=== PATIENT | female | born 1955 | race Caucasian/White ===

== ENCOUNTER 2018-06-28 11:08 | Outpatient (CLI) | payer OTHER | END 2018-06-28 12:05 | disposition still patient (30) | LOC: C.VASC 11:08 | DX: I73.9 Peripheral vascular disease, unspecified (principal) ==

== ENCOUNTER 2018-06-28 12:06 | Inpatient (IN) | payer OTHER ==
[2018-06-28 12:39] VITALS: BMI 32.3
--- NOTE | 2018-06-28 12:54 | C.PDOC ---
History Of Present Illness 62 y/o female presents to the ER complaining of pain in the chest and upper abdomen which began in the morning today. Daughter states that she is concerned because patient has history of open-heart surgery. Patient denies having fever, chills, shortness of breath, nausea, vomiting, and leg swelling. Time Seen by Provider: 06/28/18 12:28 Chief Complaint (Nursing): Chest Pain History Per: Patient History/Exam Limitations: no limitations Onset/Duration Of Symptoms: Days Current Symptoms Are (Timing): Still Present Severity: Moderate Quality: Aching Past Medical History Reviewed: Historical Data, Nursing Documentation, Vital Signs Vital Signs: Last Vital Signs Temp 97.1 F L 06/28/18 12:25 Pulse 60 06/28/18 12:25 Resp 20 06/28/18 12:25 BP 138/92 H 06/28/18 12:25 Pulse Ox 98 06/28/18 12:25 - Medical History PMH: Arthritis, Asthma, CAD (s/p CABG 6 months), Cardia Arrhythmia, Depression, Diabetes, HTN, Hypercholesterolemia, Peripheral Edema (RT PEDAL EDEMA) Comment Only: Chronic Kidney Disease (ACUTE RENAL FAILURE AFTER CABG) Family History: States: No Known Family Hx - Social History Hx Tobacco Use: No Hx Alcohol Use: No Hx Substance Use: No - Immunization History Hx Influenza Vaccination: Yes Review Of Systems Except As Marked, All Systems Reviewed And Found Negative. Constitutional: Negative for: Fever, Chills Cardiovascular: Positive for: Chest Pain Respiratory: Negative for: Shortness of Breath Gastrointestinal: Positive for: Abdominal Pain. Negative for: Nausea, Vomiting Physical Exam - Physical Exam Appears: Non-toxic, No Acute Distress Skin: Normal Color, Warm, Dry Head: Atraumatic, Normacephalic Eye(s): bilateral: Normal Inspection Nose: Normal Oral Mucosa: Moist Neck: Supple Chest: Symmetrical Cardiovascular: Rhythm Regular Respiratory: Normal Breath Sounds, No Rales, No Rhonchi, No Wheezing Gastrointestinal/Abdominal: Soft, Tenderness (epigastric and RUQ tenderness), No Guarding, No Rebound Extremity: Normal ROM Neurological/Psych: Oriented x3, Normal Speech Disoriented To: Person ED Course And Treatment - Laboratory Results Result Diagrams: 06/28/18 12:50 06/28/18 12:50 Lab Interpretation: No Acute Changes ECG: Interpreted By Me ECG Rhythm: Sinus Bradycardia, ST/T Changes ECG Interpretation: No Changes From Prior Rate From EC O2 Sat by Pulse Oximetry: 98 (RA) Pulse Ox Interpretation: Normal - Radiology CXR: Interpreted by Me CXR Interpretation: Yes: No Acute Disease - CT Scan/US No standard instances Other Rad Studies (CT/US): Read By Radiologist, Radiology Report Reviewed CT/US Interpretation: FINDINGS: LIVER: Measures 14.8 cm in sagittal dimension. Echogenic liver may be seen in setting of hepatic parenchymal disease or fatty infiltration. No focal hepatic mass identified. The main portal vein appears patent with normal directional flow. No intrahepatic bile duct dilatation. GALLBLADDER: Cholecystectomy. COMMON BILE DUCT: Measures 3 mm. PANCREAS: Not well visualized. RIGHT KIDNEY: Measures 11.7 x 3.4 x 5.8 cm. No obstructing calculus or hydronephrosis identified. LEFT KIDNEY: Measures 11.0 x 4.3 x 4.7 cm. No obstructing calculus or hydronephrosis identified. SPLEEN: Measures approximately 7.9 cm. AORTA: Limited views appear unremarkable. IVC: Limited views appear unremarkable. OTHER FINDINGS: None. IMPRESSION: Ch olecystectomy. Echogenic liver may be seen in setting of hepatic parenchymal disease or fatty infiltration. Progress Note: Patient brought in by family with complaints of midsternal CP. On re-evaluation. lungs cleat, in no distress Reassessment Condition: Improved - Physician Consult Information Physician Contacted: Nitesh Kevin Outcome Of Conversation: admit Medical Decision Making Medical Decision Making: Plan: --Labs --UA --CXR --US-Abd. Disposition Discussed With .: Nitesh Kevin Doctor Will See Patient In The: Hospital - Disposition Disposition: HOSPITALIZED Disposition Time: 16:00 Condition: STABLE - POA Present On Arrival: None - Clinical Impression Clinical Impression: Chest pain, Abnormal EKG - PA / DENTAL HYGIENE INSTRUCTOR / Resident Statement MD/DO has reviewed & agrees with the documentation as recorded. - Scribe Statement The provider has reviewed the documentation as recorded by the Jose Simon Provider Attestation All medical record entries made by the Kelyibe were at my direction and personally dictated by me. I have reviewed the chart and agree that the record accurately reflects my personal performance of the history, physical exam, medical decision making, and the department course for this patient. I have also personally directed, reviewed, and agree with the discharge instructions and disposition. Decision To Admit - Pt Status Changed To: Hospital Disposition Of: Inpatient - Admit Certification Admit to Inpatient:: After my assessment, the patient will require hospitalization for at least two midnights. This is because of the severity of symptoms shown, intensity of services needed, and/or the medical risk in this patient being treated as an outpatient. - InPatient: Physician Admission Certification: I certify that this patient requires 2 or mo re midnights of care for the following reason:: Chest pain - . Bed Request Type: Telemetry Admitting Physician: Nitesh Kevin Patient Diagnosis: Chest pain, Abnormal EKG
[2018-06-28 12:56] LABS: BASO % 0.5 % (0.0-2.0); EOS # 0.2 K/uL (0.0-0.7); EOS % 2.9 % (0.0-4.0); HEMOGLOBIN 10.4 g/dL (11.0-16.0); LYMPH # 2.1 K/uL (1.0-4.3); LYMPH % 33.3 % (20.0-40.0); MEAN CORPUSCULAR HEMOGLOBIN 29.9 pg (27.0-31.0); MEAN CORPUSCULAR HGB CONC 33.6 g/dL (33.0-37.0); MEAN PLATELET VOLUME 10.2 fL (7.2-11.7); MONO # 0.5 K/uL (0.0-0.8); MONO % 8.3 % (0.0-10.0); NEUT # 3.4 K/uL (1.8-7.0); NRBC % 0.1 % (0.0-2.0); RBC 3.5 Mil/uL (3.80-5.20); RED CELL DISTRIBUTION WIDTH 13.4 % (11.5-14.5); WHITE BLOOD COUNT 6.3 K/uL (4.8-10.8)
[2018-06-28 13:07] LABS: ALB/GLOB RATIO 1.3 (1.0-2.1); ALBUMIN 4.1 g/dL (3.5-5.0); ALT/SGPT 9 U/L (9-52); AST/SGOT 30 U/L (14-36); BLOOD UREA NITROGEN 42 mg/dL (7-17); CALCIUM 9.3 mg/dl (8.6-10.4); GFR NON-AFRICAN AMERICAN 27; LIPASE 232 U/L (23-300)
[2018-06-28 13:19] LABS: CK-MB 1.12 ng/mL (0.0-3.38)
--- NOTE | 2018-06-28 13:21 | RAD ---
HISTORY: SOB COMPARISON: None available. TECHNIQUE: Chest, one view. FINDINGS: Examination limited by habitus. LUNGS: No focal consolidation. Please note that chest x-ray has limited sensitivity for the detection of pulmonary masses. PLEURA: No significant pleural effusion identified. No definite pneumothorax . CARDIOVASCULAR: Median sternotomy wires. Cardiomegaly. Atherosclerotic calcifications of the aortic knob. OSSEOUS STRUCTURES: Degenerative changes. VISUALIZED UPPER ABDOMEN: Unremarkable. OTHER FINDINGS: None. IMPRESSION: No focal consolidation. Median sternotomy wires. Cardiomegaly.
--- NOTE | 2018-06-28 13:39 | US ---
HISTORY: R/O GB COMPARISON: None available. TECHNIQUE: Sonographic evaluation of the abdomen. FINDINGS: LIVER: Measures 14.8 cm in sagittal dimension. Echogenic liver may be seen in setting of hepatic parenchymal disease or fatty infiltration. No focal hepatic mass identified. The main portal vein appears patent with normal directional flow. No intrahepatic bile duct dilatation. GALLBLADDER: Cholecystectomy. COMMON BILE DUCT: Measures 3 mm. PANCREAS: Not well visualized. RIGHT KIDNEY: Measures 11.7 x 3.4 x 5.8 cm. No obstructing calculus or hydronephrosis identified. LEFT KIDNEY: Measures 11.0 x 4.3 x 4.7 cm. No obstructing calculus or hydronephrosis identified. SPLEEN: Measures approximately 7.9 cm. AORTA: Limited views appear unremarkable. IVC: Limited views appear unremarkable. OTHER FINDINGS: None. IMPRESSION: Cholecystectomy. Echogenic liver may be seen in setting of hepatic parenchymal disease or fatty infiltration.
[2018-06-28 14:34] LABS: SQUAMOUS EPITHIAL 1 /hpf (0-5)
[2018-06-28 14:35] LABS: URINE BILIRUBIN NEGATIVE (NEGATIVE); URINE BLOOD NEGATIVE (NEGATIVE); URINE CLARITY Clear (Clear); URINE COLOR YELLOW (YELLOW); URINE GLUCOSE (UA) NEGATIVE (Normal); URINE LEUKOCYTE ESTERASE NEGATIVE Leu/uL (Negative); URINE PROTEIN 2+ mg/dL (NEGATIVE); URINE UROBILINOGEN 0.2 mg/dL (0.2-1.0)
--- NOTE | 2018-06-28 17:11 | CP.PCM.PN ---
Subjective - Date & Time of Evaluation Date of Evaluation: 06/28/18 Time of Evaluation: 17:09 - Subjective Subjective: Medicine Progress Note - Dr Kevin's service Patient is a 62 year old female with past medical history of Renal insufficiency, Diabetes mellitus, Hypertension who presented to the emergency department for chest pain. Patient is a poor historian. Per the daughter, the patient was ambulating today when she developed left sided chest pain. Patient states that she came to the hospital to have an outpatient US done of the lower extremities. She took her blood pressure medications at this time and went to the emergency department. Patient has a history of 3 open heart surgeries in the past. The last CABG was in 2013. Per the daughter, the patient has not been ambulating much in the last year. She had a dialysis catheter placed in 2013 that was only used for a month before being removed. Patient has been complaining of pain over this site since then. Currently she offers no complaints at this time. [facility]acy[facility] Allergies: NKDA Medications: losartan 50, norvasc 10, coreg 6.25 bid, asa 81, plavix 75, lipitor 40, iron 324 TID Medical History: CAD s/p CABG, hypercholesterolemia, Anemia, Hypertension Surgical History: CABG in 2013 Social History: Denies alcohol, tobacco, drug use Family History: Mother - DM Objective - Vital Signs/Intake and Output Vital Signs (last 24 hours): Temp Pulse Resp BP Pulse Ox 97.5 F L 61 14 129/51 L 99 06/28/18 15:35 06/28/18 16:30 06/28/18 16:30 06/28/18 16:30 06/28/18 16:30 - Labs Labs: 06/28/18 12:50 06/28/18 12:50 - Constitutional Appears: Non-toxic, No Acute Distress, Chronically Ill - Head Exam Head Exam: ATRAUMATIC, NORMAL INSPECTION, NORMOCEPHALIC - Eye Exam Eye Exam: EOMI - ENT Exam ENT Exam: Mucous Membranes Moist - Respiratory Exam Respiratory Exam: Clear to Ausculation Bilateral, NORMAL BREATHING PATTERN. absent: Rales, Rhonchi, Wheezes - Cardiovascular Exam Cardiovascular Exam: REGULAR RHYTHM, +S1, +S2, Murmur - GI/Abdominal Exam GI & Abdominal Exam: Guarding, Soft, Tenderness (epigastric tenderness). absent: Rigid - Extremities Exam Extremities Exam: Normal Inspection. absent: Calf Tenderness - Neurological Exam Neurological Exam: Alert, Awake, Oriented x3 - Psychiatric Exam Psychiatric exam: Normal Affect, Normal Mood - Skin Skin Exam: Dry, Normal Color, Warm Assessment and Plan - Assessment and Plan (Free Text) Assessment: Chest pain r/o ACS, History of CAD s/p CABG -Admit to telemetry -Initial troponin is negative, trend q6H x 2 -Started on Aspirin 81mg PO daily, plavix 75mg PO daily, Crestor 10mg PO HS -Last echocardiogram 03/2018 showed moderate concentric LVH, EF 55-60%, possible moderate , trace TR, left ventricle abnormal size -Cardiology on consult, Dr Peterson, help appreciated Abdominal Pain -Abdominal US: Cholecystectomy, echogenic liver may be seen in the setting of hepatic parenchymal disease or fatty infiltration Hypertension -Norvasc 10mg PO daily -Coreg 6.125mg PO BID Renal Insufficency -BUN/Cr on admission 42/1.9 -Patient states that she was on dialysis for just a month in the past -Nephrology on consult, Dr Guerra, help appreciated Diabetes Mellitus -F/U hemoglobin A1C -Started on insulin sliding scale and accuchecks ACHS Anemia likely secondary to chronic disease -F/U iron studies GI/DVT ppx: -Protonix 40mg IVP daily -Heparin 5000 SC Q12H Plan discussed with Dr Dorita Mccormick DO PGY-2
[2018-06-28 18:24] LABS: CK-MB 1.48 ng/mL (0.0-3.38)
[2018-06-28] MEDS ORDERED: Aluminum Hydroxide/Magnesium Hydroxide Susp (30 mL) PO PRN (20:30)
[2018-06-28] MEDS: (Novolog) Insulin Aspart, Recombinant 100 u/ml 10 ml vial SC SCH (21:30)
[2018-06-29 01:44] LABS: CK-MB 1.07 ng/mL (0.0-3.38)
--- NOTE | 2018-06-29 07:18 | CP.PCM.PN ---
Subjective - Date & Time of Evaluation Date of Evaluation: 06/29/18 Time of Evaluation: 07:18 - Subjective Subjective: Medicine Progress Note - Dr Kevin's service Patient seen and examined at bedside. Per nursing no acute events overnight. Patient is tolerating diet. States that she had a headache that improved with Tylenol. Offers no complaints at this time. Objective - Vital Signs/Intake and Output Vital Signs (last 24 hours): Temp Pulse Resp BP Pulse Ox 98.0 F 67 20 152/62 H 98 06/29/18 00:10 06/29/18 00:10 06/29/18 00:10 06/29/18 00:10 06/29/18 00:10 - Medications Medications: Current Medications Al Hydrox/Mg Hydrox/Simethicone (Maalox 30 Ml) 30 ml PO Q6 PRN PRN Reason: Indigestion / Heartburn Amlodipine Besylate (Norvasc) 10 mg PO DAILY [facility] Aspirin (Ecotrin) 81 mg PO DAILY [facility] Carvedilol (Coreg) 6.25 mg PO BID [facility] Last Admin: 06/28/18 18:38 Dose: 6.25 mg Clopidogrel Bisulfate (Plavix) 75 mg PO DAILY [facility] Docusate Sodium (Colace) 100 mg PO TID [facility] Famotidine (Pepcid) 20 mg IVP DAILY [facility] Ferrous Sulfate (Feosol) 325 mg PO TID [facility] Heparin Sodium (Porcine) (Heparin) 5,000 units SC Q12 [facility] Last Admin: 06/28/18 21:27 Dose: 5,000 units Insulin Aspart (Novolog) 0 unit SC ACHS [facility]; Protocol Last Admin: 06/28/18 21:30 Dose: Not Given Rosuvastatin Calcium (Crestor) 20 mg PO HS [facility] Last Admin: 06/28/18 21:35 Dose: 20 mg - Labs Labs: 06/28/18 12:50 06/28/18 12:50 Assessment and Plan - Assessment and Plan (Free Text) Assessment: Chest pain r/o ACS, History of CAD s/p CABG -Admit to telemetry -Troponins negative x 3 -Continue Aspirin 81mg PO daily, plavix 75mg PO daily -Last echocardiogram 03/2018 showed moderate concentric LVH, EF 55-60%, possible moderate , trace TR, left ventricle abnormal size -Patient for possible stress test -Cardiology on consult, Dr Peterson, help appreciated Abdominal Pain -Abdominal US: Cholecystectomy, echogenic liver may be seen in the setting of hepatic parenchymal disease or fatty infiltration -Pepcid 20mg IVP daily Renal Insufficiency -BUN/Cr on admission 42/.9 -Patient states that she was on dialysis for just a month in the past -Nephrology on consult, Dr Guerra, help appreciated Hypertension -Cozaar 25mg PO daily -Norvasc 10mg PO daily Diabetes Mellitus -Hemoglobin A1C 8.3 -Started on insulin sliding scale and accuchecks ACHS History of hyperlipidemia -Triglycerides are elevated -Crestor 10mg PO HS Anemia likely secondary to chronic disease -Continue Ferrous sulfate GI/DVT ppx: -Pepcid 20mg IVP daily -Heparin 5000 SC Q12H Plan discussed with Dr Dorita Mccormick DO PGY-2
[2018-06-29 08:33] LABS: BASO % 0.9 % (0.0-2.0); EOS # 0.2 K/uL (0.0-0.7); EOS % 3.2 % (0.0-4.0); LYMPH # 2.1 K/uL (1.0-4.3); LYMPH % 39.7 % (20.0-40.0); MEAN CELL VOLUME 88.6 fL (81.0-99.0); MEAN CORPUSCULAR HEMOGLOBIN 29.8 pg (27.0-31.0); MEAN CORPUSCULAR HGB CONC 33.6 g/dL (33.0-37.0); MEAN PLATELET VOLUME 9.5 fL (7.2-11.7); MONO # 0.5 K/uL (0.0-0.8); NEUT # 2.5 K/uL (1.8-7.0); NEUT % 47.2 % (50.0-75.0); RBC 3.35 Mil/uL (3.80-5.20); RED CELL DISTRIBUTION WIDTH 13.6 % (11.5-14.5); WHITE BLOOD COUNT 5.3 K/uL (4.8-10.8)
[2018-06-29 08:46] LABS: ALB/GLOB RATIO 1.3 (1.0-2.1); ALBUMIN 3.9 g/dL (3.5-5.0); ALT/SGPT < 6 U/L (9-52); AST/SGOT 17 U/L (14-36); BLOOD UREA NITROGEN 38 mg/dL (7-17); CALCIUM 9.1 mg/dl (8.6-10.4); GFR NON-AFRICAN AMERICAN 22; HDL CHOLESTEROL 51 mg/dL (30-70)
[2018-06-29] MEDS: (Novolog) Insulin Aspart, Recombinant 100 u/ml 10 ml vial SC SCH ×4 (08:48→21:07)
[2018-06-29 08:56] LABS: LDL CHOLESTEROL 36 mg/dL (0-129)
[2018-06-29 08:58] LABS: IRON 49 ug/dL (37-170)
[2018-06-29 09:07] LABS: % IRON SATURATION 17 (20-55); TOTAL IRON BINDING CAPACITY 286 ug/dL (250-450); TRANSFERRIN 198.83 mg/dL (206-381)
[2018-06-29 09:15] LABS: FREE T4 0.98 ng/dL (0.78-2.19)
[2018-06-29 09:18] LABS: FERRITIN 60.5 ng/mL
[2018-06-29 09:49] LABS: FOLATE 11.9 ng/mL
--- NOTE | 2018-06-29 10:19 | CP.PCM.CON ---
<Deepika Alegria - Last Filed: 06/29/18 14:12> History of Present Illness - History of Present Illness History of Present Illness: Deepika Alegria, PGY-1, Cardiology Consult Note for Dr. Elias 62 year old female bengali speaking and poor historian with past medical history of hypertension, hyperlipidemia, diabetes mellitus type II, history of prior thrombus presents with fatigue. Patient reports fatigue with 2-3 steps. Patient has shortness of breath and feels like "heart will stop". Patient denies chest pain, nausea, heart palpitations. Patient reports fatigue started October 08 after CABG last year. However, patient's last documented CABG was in 2013, which was confirmed by daughter. Patient was brought to the hospital by daughter for these symptoms as they were walking to the hospital for an X ray. 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: unsure due to patient being poor historian Review of Systems - Review of Systems Review of Systems: except as stated in HPI Past Patient History - Infectious Disease Hx of Infectious Diseases: None - Tetanus Immunizations Tetanus Immunization: Unknown - Past Social History Smoking Status: Never Smoked - CARDIAC Hx Cardia Arrhythmia: Yes Hx Hypercholesterolemia: Yes Hx Hypertension: Yes Hx Peripheral Edema: Yes (RT PEDAL EDEMA) - PULMONARY Hx Asthma: Yes - NEUROLOGICAL Hx Alzheimer's Disease: No Hx Dementia: No Hx Migraine: No Hx Parkinson's Disease: No Hx Seizures: No Hx Transient Ischemic Attacks (TIA): No - HEENT Hx HEENT Problems: Yes (USING GLASSES) Hx Blind: Yes (legally blind) - RENAL Hx Chronic Kidney Disease: (ACUTE RENAL FAILURE AFTER CABG) - ENDOCRINE/METABOLIC Hx Hyperthyroidism: No Hx Hypothyroidism: No - HEMATOLOGICAL/ONCOLOGICAL Hx Anemia: No Hx Human Immunodeficiency Virus (HIV): No Hx Sickle Cell Disease: No - INTEGUMENTARY Hx Dermatological Problems: No Hx Basil Cell: No Hx Eczema: No Hx Melanoma: No Hx Psoriasis: No Hx Squamous Cell: No - MUSCULOSKELETAL/RHEUMATOLOGICAL Hx Arthritis: Yes - GASTROINTESTINAL Hx Crohn's Disease: No Hx Diverticulitis: No Hx Gall Bladder Disease: No Hx Pancreatitis: No - GENITOURINARY/GYNECOLOGICAL Hx Sexually Transmitted Disorders: No - PSYCHIATRIC Hx Depression: Yes Hx Substance Use: No - SURGICAL HISTORY Hx Appendectomy: No Hx Cholecystectomy: No Hx Coronary Stent: No - ANESTHESIA Hx Anesthesia: Yes Hx Anesthesia Reactions: No Hx Malignant Hyperthermia: No Meds Allergies/Adverse Reactions: Allergies Allergy/AdvReac Type Severity Reaction Status Date / Time No Known Allergies Allergy Verified 03/31/18 00:22 - Medications Medications: Current Medications Al Hydrox/Mg Hydrox/Simethicone (Maalox 30 Ml) 30 ml PO Q6 PRN PRN Reason: Indigestion / Heartburn Amlodipine Besylate (Norvasc) 10 mg PO DAILY [facility] Aspirin (Ecotrin) 81 mg PO DAILY [facility] Carvedilol (Coreg) 6.25 mg PO BID [facility] Last Admin: 06/28/18 18:38 Dose: 6.25 mg Clopidogrel Bisulfate (Plavix) 75 mg PO DAILY [facility] Docusate Sodium (Colace) 100 mg PO TID [facility] Famotidine (Pepcid) 20 mg IVP DAILY [facility] Ferrous Sulfate (Feosol) 325 mg PO TID [facility] Heparin Sodium (Porcine) (Heparin) 5,000 units SC Q12 [facility] Last Admin: 06/28/18 21:27 Dose: 5,000 units Insulin Aspart (Novolog) 0 unit SC ACHS [facility]; Protocol Last Admin: 06/29/18 08:48 Dose: Not Given Rosuvastatin Calcium (Crestor) 20 mg PO [facility] Last Admin: 06/28/18 21:35 Dose: 20 mg Physical Exam - Constitutional Appears: Well, Non-toxic, No Acute Distress - Head Exam Head Exam: ATRAUMATIC, NORMAL INSPECTION, NORMOCEPHALIC - Eye Exam Eye Exam: EOMI, PERRL - ENT Exam ENT Exam: Mucous Membranes Moist - Respiratory Exam Respiratory Exam: Clear to Auscultation Bilateral, NORMAL BREATHING PATTERN - Cardiovascular Exam Cardiovascular Exam: REGULAR RHYTHM, RRR, +S1, +S2 - GI/Abdominal Exam GI & Abdominal Exam: Normal Bowel Sounds, Soft. absent: Tenderness - Extremities Exam Extremities exam: Positive for: full ROM, normal inspection. Negative for: pedal edema - Neurological Exam Neurological exam: Alert, CN II-XII Intact, Oriented x3 - Skin Skin Exam: Dry, Intact Results - Vital Signs Recent Vital Signs: Last Vital Signs Temp 97.7 F 06/29/18 07:00 Pulse 65 06/29/18 07:30 Resp 20 06/29/18 07:00 BP 149/60 06/29/18 07:00 Pulse Ox 98 06/29/18 07:00 - Labs Result Diagrams: 06/29/18 08:23 06/29/18 08:23 Labs: Laboratory Results - last 24 hr 06/28/18 06/28/18 06/28/18 12:50 12:50 14:07 WBC 6.3 RBC 3.50 L Hgb 10.4 L Hct 31.1 L MCV 89.0 MCH 29.9 MCHC 33.6 RDW 13.4 Plt Count 263 MPV 10.2 Neut % (Auto) 55.0 Lymph % (Auto) 33.3 [place] % (Auto) 8.3 Eos % (Auto) 2.9 Baso % (Auto) 0.5 Neut # (Auto) 3.4 Lymph # (Auto) 2.1 [place] # (Auto) 0.5 Eos # (Auto) 0.2 Baso # (Auto) 0.0 Retic Count Sodium 134 Potassium 4.8 Chloride 103 Carbon Dioxide 22 Anion Gap 13 BUN 42 H Creatinine 1.9 H Est GFR ( Amer) 32 Est GFR (Non-Af Amer) 27 Random Glucose 155 H Hemoglobin A1c Calcium 9.3 Phosphorus Magnesium Iron TIBC % Saturation Transferrin Ferritin Total Bilirubin 0.5 AST 30 ALT 9 Alkaline Phosphatase 169 H Total Creatine Kinase CK-MB (Mass) 1.12 Troponin I < 0.0120 Total Protein 7.3 Albumin 4.1 Globulin 3.2 Albumin/Globulin Ratio 1.3 Triglycerides Cholesterol LDL Cholesterol Direct HDL Cholesterol Lipase 232 Vitamin B12 25-OH Vitamin D Total Folate Free T4 TSH 3rd Generation Urine Color Yellow Urine Clarity Clear Urine pH 6.0 Ur Specific [place] 1.020 Urine Protein 2+ H Urine Glucose (UA) Negative Urine Ketones Negative Urine Blood Negative Urine Nitrate Negative Urine Bilirubin Negative Urine Urobilinogen 0.2 Ur Leukocyte Esterase Negative Urine WBC (Auto) 4 Urine RBC (Auto) 1 Ur Squamous Epith Cells 1 Hyaline Casts 3-5 H 06/28/18 06/29/18 06/29/18 17:57 01:12 08:23 WBC 5.3 RBC 3.35 L Hgb 10.0 L Hct 29.7 L MCV 88.6 MCH 29.8 MCHC 33.6 RDW 13.6 Plt Count 258 MPV 9.5 Neut % (Auto) 47.2 L Lymph % (Auto) 39.7 [place] % (Auto) 9.0 Eos % (Auto) 3.2 Baso % (Auto) 0.9 Neut # (Auto) 2.5 Lymph # (Auto) 2.1 [place] # (Auto) 0.5 Eos # (Auto) 0.2 Baso # (Auto) 0.0 Retic Count 1.2 Sodium Potassium Chloride Carbon Dioxide Anion Gap BUN Creatinine Est GFR ( Amer) Est GFR (Non-Af Amer) Random Glucose Hemoglobin A1c Calcium Phosphorus Magnesium Iron TIBC % Saturation Transferrin Ferritin Total Bilirubin AST ALT Alkaline Phosphatase Total Creatine Kinase 59 52 CK-MB (Mass) 1.48 1.07 Troponin I < 0.0120 < 0.0120 Total Protein Albumin Globulin Albumin/Globulin Ratio Triglycerides Cholesterol LDL Cholesterol Direct HDL Cholesterol Lipase Vitamin B12 25-OH Vitamin D Total Folate Free T4 TSH 3rd Generation Urine Color Urine Clarity Urine pH Ur Specific [place] Urine Protein Urine Glucose (UA) Urine Ketones Urine Blood Urine Nitrate Urine Bilirubin Urine Urobilinogen Ur Leukocyte Esterase Urine WBC (Auto) Urine RBC (Auto) Ur Squamous Epith Cells Hyaline Casts 06/29/18 06/29/18 06/29/18 08:23 08:23 08:23 WBC RBC Hgb Hct MCV MCH MCHC RDW Plt Count MPV Neut % (Auto) Lymph % (Auto) [place] % (Auto) Eos % (Auto) Baso % (Auto) Neut # (Auto) Lymph # (Auto) [place] # (Auto) Eos # (Auto) Baso # (Auto) Retic Count Sodium 135 Potassium 3.9 Chloride 104 Carbon Dioxide 23 Anion Gap 12 BUN 38 H Creatinine 2.2 H Est GFR ( Amer) 27 Est GFR (Non-Af Amer) 22 Random Glucose 109 H D Hemoglobin A1c 8.3 H Calcium 9.1 Phosphorus 5.1 H Magnesium 2.1 Iron TIBC % Saturation Transferrin 198.83 L Ferritin 60.5 Total Bilirubin 0.3 AST 17 ALT < 6 L D Alkaline Phosphatase 172 H Total Creatine Kinase CK-MB (Mass) Troponin I Total Protein 7.0 Albumin 3.9 Globulin 3.1 Albumin/Globulin Ratio 1.3 Triglycerides 181 H Cholesterol 135 LDL Cholesterol Direct 36 HDL Cholesterol 51 Lipase Vitamin B12 656 25-OH Vitamin D Total Folate 11.9 Free T4 0.98 TSH 3rd Generation 4.47 Urine Color Urine Clarity Urine pH Ur Specific [place] Urine Protein Urine Glucose (UA) Urine Ketones Urine Blood Urine Nitrate Urine Bilirubin Urine Urobilinogen Ur Leukocyte Esterase Urine WBC (Auto) Urine RBC (Auto) Ur Squamous Epith Cells Hyaline Casts 06/29/18 06/29/18 08:23 08:23 WBC RBC Hgb Hct MCV MCH MCHC RDW Plt Count MPV Neut % (Auto) Lymph % (Auto) [place] % (Auto) Eos % (Auto) Baso % (Auto) Neut # (Auto) Lymph # (Auto) [place] # (Auto) Eos # (Auto) Baso # (Auto) Retic Count Sodium Potassium Chloride Carbon Dioxide Anion Gap BUN Creatinine Est GFR ( Amer) Est GFR (Non-Af Amer) Random Glucose Hemoglobin A1c Calcium Phosphorus Magnesium Iron 49 TIBC 286 % Saturation 17 L Transferrin Ferritin Total Bilirubin AST ALT Alkaline Phosphatase Total Creatine Kinase CK-MB (Mass) Troponin I Total Protein Albumin Globulin Albumin/Globulin Ratio Triglycerides Cholesterol LDL Cholesterol Direct HDL Cholesterol Lipase Vitamin B12 25-OH Vitamin D Total 38.3 Folate Free T4 TSH 3rd Generation Urine Color Urine Clarity Urine pH Ur Specific [place] Urine Protein Urine Glucose (UA) Urine Ketones Urine Blood Urine Nitrate Urine Bilirubin Urine Urobilinogen Ur Leukocyte Esterase Urine WBC (Auto) Urine RBC (Auto) Ur Squamous Epith Cells Hyaline Casts Assessment & Plan (1) Fatigue Assessment and Plan: EKG: NSR with T wave depressions in I and aVL. ST elevation in III and aVF. UNCHANGED FROM PRIOR ADMISSION Tropx3: unremarkable Will likely evaluate with stress test for possible etiology of fatigue Continue with aspirin, rosuvastatin, coreg, losartan. Status: Acute (2) Diabetes mellitus Assessment and Plan: HgbA1c: 8.3 Continue with sliding scale insulin Status: Acute (3) HTN (hypertension) Assessment and Plan: SBP ranging from 130s to 150s Continue norvasc, coreg Status: Acute (4) Hyperlipidemia Assessment and Plan: T Continue with rosuvastatin. Status: Acute - Date & Time Date: 06/29/18 Time: 10:20 <Medardo Peterson - Last Filed: 07/05/18 22:42> Results - Vital Signs Recent Vital Signs: Last Vital Signs Temp 97.7 F 07/04/18 18:10 Pulse 68 07/04/18 18:10 Resp 20 07/04/18 18:10 BP 159/68 H 07/04/18 18:12 Pulse Ox 100 07/04/18 18:10 - Labs Result Diagrams: 07/04/18 07:51 07/04/18 07:51 Assessment & Plan (1) CAD (coronary artery disease) of artery bypass graft Status: Acute (2) Fatigue Status: Acute (3) Diabetes mellitus Status: Acute (4) Hyperlipidemia Status: Acute (5) Abnormal EKG Status: Acute (6) HTN (hypertension) Status: Acute Attending/Attestation - Attestation I have personally seen and examined this patient.: Yes I have fully participated in the care of the patient.: Yes I have reviewed all pertinent clinical information: Yes
--- NOTE | 2018-06-29 14:48 | CP.PCM.CON ---
History of Present Illness - History of Present Illness History of Present Illness: Nephrology Consultation Note: Assessment: Stable exertional SOB ? angina Diabetic chronic Kidney Disease (E11.22) Hypertensive Chronic Kidney Disease (I12.9) Chronic Kidney Disease (N18.3) Stage 4 likely due to DM/HTN Anemia (D64.9), CAD s/p CABG Plan No acute need for renal replacement therapy at this time. Hypertension control with meds as ordered. Maintain hemodynamics stable. Avoid hypotension. continue with current meds. pt on raas salomon as losartan 50 mg/d, continue same. Monitor Input/Output, daily weights and renal function with basic metabolic panel continue with statins continue with iron and MVI cardiology following Dose meds/antibiotics for reduced GFR. Avoid fleets enema/magnesium based laxatives. Avoid nephrotoxins/NSAIDs/ iodinated contrast (unless needed emergently) Glycemic control Further work up/management as per primary team Thanks for allowing me to participate in care of your patient. Will follow patient with you. Please call if any Qs. Dr Kaushal Guerra Office: [phone] Chief Complaint; exertional SOB Reason for consult: HTn and CKD HPI: Pt is a 62 F with hx of diabetes Mellitus ( years), hypertension (years) CKD 4 with baseline cr 1.9-2.1, CAD s/p CABG presented with complaints of exertional SOB and seen in renal consult for htn and ckd 4 management. 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 It is better controlled albeit with 5-6 meds. daughter prepare the meds for her but at times, there may be compliance issues from pt Denies OTC/herbal meds/NSAIDs No recent iodinated contrast exposure. No obvious episodes of low BP. ROS: Cardiovascular: denies chest pain . Pulmonary: No shortness of breath At present Gastrointestinal: denies abdominal pain No nausea. No vomiting. Genitourinary: No pain while urinating. Denies blood in urine. All other negative except as mentioned in HPI Physical Examination: General Appearance: Comfortable, in no acute respiratory distress, co-operative . Vitals reviewed and noted as below Head; Atraumatic, normocephalic ENT: no ulcers no thrush. Tongue is midline. Oropharynx: no rash or ulcers. EYES: Pupils are equal, round and reactive to light accommodation. Eye muscles and extraocular movement intact. Sclera is anicteric. Neck; supple no lymphadenopathy, no thyromegaly or bruit Lungs: Normal respiratory rate/effort. Breath sounds bilateral equal and clear. has CABG scar Heart: Normal rate. s1s2 normal. No rub or gallop. Extremities: no edema. No varicose veins Neurological: Patient is alert, awake and oriented. No focal deficit. Strength bilateral appropriate and equal Skin: Warm and dry. Normal turgor. No rash. Palpitation: Normal elasticity for age Abdomen: Abdomen is soft. Bowel sounds +. There is no abdominal tenderness, no guarding/rigidity no organomegaly Psych: lack insight and normal affect/mood MSK: no joint tenderness or swelling. Digits and nails normal, no deformity : kidney or bladder not palpable Labs/imaging reviewed. Past medical history, past surgical history, family history, social history, allergy reviewed and noted as below Family hx: no hx of CKD. Rest non-contributory renal imaging 2018: WNL, normal adrenals Past Patient History - Infectious Disease Hx of Infectious Diseases: None - Tetanus Immunizations Tetanus Immunization: Unknown - Past Social History Smoking Status: Never Smoked - CARDIAC Hx Cardia Arrhythmia: Yes Hx Hypercholesterolemia: Yes Hx Hypertension: Yes Hx Peripheral Edema: Yes (RT PEDAL EDEMA) - PULMONARY Hx Asthma: Yes - NEUROLOGICAL Hx Alzheimer's Disease: No Hx Dementia: No Hx Migraine: No Hx Parkinson's Disease: No Hx Seizures: No Hx Transient Ischemic Attacks (TIA): No - HEENT Hx HEENT Problems: Yes (USING GLASSES) Hx Blind: Yes (legally blind) - RENAL Hx Chronic Kidney Disease: (ACUTE RENAL FAILURE AFTER CABG) - ENDOCRINE/METABOLIC Hx Hyperthyroidism: No Hx Hypothyroidism: No - HEMATOLOGICAL/ONCOLOGICAL Hx Anemia: No Hx Human Immunodeficiency Virus (HIV): No Hx Sickle Cell Disease: No - INTEGUMENTARY Hx Dermatological Problems: No Hx Basil Cell: No Hx Eczema: No Hx Melanoma: No Hx Psoriasis: No Hx Squamous Cell: No - MUSCULOSKELETAL/RHEUMATOLOGICAL Hx Arthritis: Yes - GASTROINTESTINAL Hx Crohn's Disease: No Hx Diverticulitis: No Hx Gall Bladder Disease: No Hx Pancreatitis: No - GENITOURINARY/GYNECOLOGICAL Hx Sexually Transmitted Disorders: No - PSYCHIATRIC Hx Depression: Yes Hx Substance Use: No - SURGICAL HISTORY Hx Appendectomy: No Hx Cholecystectomy: No Hx Coronary Stent: No - ANESTHESIA Hx Anesthesia: Yes Hx Anesthesia Reactions: No Hx Malignant Hyperthermia: No Meds Allergies/Adverse Reactions: Allergies Allergy/AdvReac Type Severity Reaction Status Date / Time No Known Allergies Allergy Verified 03/31/18 00:22 - Medications Medications: Current Medications Al Hydrox/Mg Hydrox/Simethicone (Maalox 30 Ml) 30 ml PO Q6 PRN PRN Reason: Indigestion / Heartburn Amlodipine Besylate (Norvasc) 10 mg PO DAILY [facility] Last Admin: 06/29/18 10:17 Dose: 10 mg Aspirin (Ecotrin) 81 mg PO DAILY [facility] Last Admin: 06/29/18 10:17 Dose: 81 mg Carvedilol (Coreg) 6.25 mg PO BID [facility] Last Admin: 06/29/18 10:17 Dose: 6.25 mg Clopidogrel Bisulfate (Plavix) 75 mg PO DAILY [facility] Last Admin: 06/29/18 10:17 Dose: 75 mg Docusate Sodium (Colace) 100 mg PO TID [facility] Last Admin: 06/29/18 13:17 Dose: 100 mg Famotidine (Pepcid) 20 mg IVP DAILY [facility] Last Admin: 06/29/18 10:17 Dose: 20 mg Ferrous Sulfate (Feosol) 325 mg PO TID [facility] Last Admin: 06/29/18 13:16 Dose: 325 mg Heparin Sodium (Porcine) (Heparin) 5,000 units SC Q12 [facility] Last Admin: 06/29/18 10:17 Dose: 5,000 units Insulin Aspart (Novolog) 0 unit SC ACHS [facility]; Protocol Last Admin: 06/29/18 13:16 Dose: 3 units Losartan Potassium (Cozaar) 25 mg PO DAILY [facility] Rosuvastatin Calcium (Crestor) 20 mg PO HS [facility] Results - Vital Signs Recent Vital Signs: Last Vital Signs Temp 97.7 F 06/29/18 07:00 Pulse 65 06/29/18 07:30 Resp 20 06/29/18 07:00 BP 149/60 06/29/18 07:00 Pulse Ox 98 06/29/18 07:00 - Labs Result Diagrams: 06/29/18 08:23 06/29/18 08:23 Labs: Laboratory Results - last 24 hr 06/28/18 06/28/18 06/29/18 17:57 21:29 01:12 WBC RBC Hgb Hct MCV MCH MCHC RDW Plt Count MPV Neut % (Auto) Lymph % (Auto) [place] % (Auto) Eos % (Auto) Baso % (Auto) Neut # (Auto) Lymph # (Auto) [place] # (Auto) Eos # (Auto) Baso # (Auto) Retic Count Sodium Potassium Chloride Carbon Dioxide Anion Gap BUN Creatinine Est GFR ( Amer) Est GFR (Non-Af Amer) POC Glucose (mg/dL) 161 H Random Glucose Hemoglobin A1c Calcium Phosphorus Magnesium Iron TIBC % Saturation Transferrin Ferritin Total Bilirubin AST ALT Alkaline Phosphatase Total Creatine Kinase 59 52 CK-MB (Mass) 1.48 1.07 Troponin I < 0.0120 < 0.0120 Total Protein Albumin Globulin Albumin/Globulin Ratio Triglycerides Cholesterol LDL Cholesterol Direct HDL Cholesterol Vitamin B12 25-OH Vitamin D Total Folate Free T4 TSH 3rd Generation 06/29/18 06/29/18 06/29/18 06:36 08:23 08:23 WBC 5.3 RBC 3.35 L Hgb 10.0 L Hct 29.7 L MCV 88.6 MCH 29.8 MCHC 33.6 RDW 13.6 Plt Count 258 MPV 9.5 Neut % (Auto) 47.2 L Lymph % (Auto) 39.7 [place] % (Auto) 9.0 Eos % (Auto) 3.2 Baso % (Auto) 0.9 Neut # (Auto) 2.5 Lymph # (Auto) 2.1 [place] # (Auto) 0.5 Eos # (Auto) 0.2 Baso # (Auto) 0.0 Retic Count 1.2 Sodium 135 Potassium 3.9 Chloride 104 Carbon Dioxide 23 Anion Gap 12 BUN 38 H Creatinine 2.2 H Est GFR ( Amer) 27 Est GFR (Non-Af Amer) 22 POC Glucose (mg/dL) 123 H Random Glucose 109 H D Hemoglobin A1c Calcium 9.1 Phosphorus 5.1 H Magnesium 2.1 Iron TIBC % Saturation Transferrin Ferritin 60.5 Total Bilirubin 0.3 AST 17 ALT < 6 L D Alkaline Phosphatase 172 H Total Creatine Kinase CK-MB (Mass) Troponin I Total Protein 7.0 Albumin 3.9 Globulin 3.1 Albumin/Globulin Ratio 1.3 Triglycerides 181 H Cholesterol 135 LDL Cholesterol Direct 36 HDL Cholesterol 51 Vitamin B12 656 25-OH Vitamin D Total Folate 11.9 Free T4 TSH 3rd Generation 4.47 06/29/18 06/29/18 06/29/18 08:23 08:23 08:23 WBC RBC Hgb Hct MCV MCH MCHC RDW Plt Count MPV Neut % (Auto) Lymph % (Auto) [place] % (Auto) Eos % (Auto) Baso % (Auto) Neut # (Auto) Lymph # (Auto) [place] # (Auto) Eos # (Auto) Baso # (Auto) Retic Count Sodium Potassium Chloride Carbon Dioxide Anion Gap BUN Creatinine Est GFR ( Amer) Est GFR (Non-Af Amer) POC Glucose (mg/dL) Random Glucose Hemoglobin A1c 8.3 H Calcium Phosphorus Magnesium Iron 49 TIBC 286 % Saturation 17 L Transferrin 198.83 L Ferritin Total Bilirubin AST ALT Alkaline Phosphatase Total Creatine Kinase CK-MB (Mass) Troponin I Total Protein Albumin Globulin Albumin/Globulin Ratio Triglycerides Cholesterol LDL Cholesterol Direct HDL Cholesterol Vitamin B12 25-OH Vitamin D Total Folate Free T4 0.98 TSH 3rd Generation 06/29/18 06/29/18 08:23 10:54 WBC RBC Hgb Hct MCV MCH MCHC RDW Plt Count MPV Neut % (Auto) Lymph % (Auto) [place] % (Auto) Eos % (Auto) Baso % (Auto) Neut # (Auto) Lymph # (Auto) [place] # (Auto) Eos # (Auto) Baso # (Auto) Retic Count Sodium Potassium Chloride Carbon Dioxide Anion Gap BUN Creatinine Est GFR ( Amer) Est GFR (Non-Af Amer) POC Glucose (mg/dL) 282 H Random Glucose Hemoglobin A1c Calcium Phosphorus Magnesium Iron TIBC % Saturation Transferrin Ferritin Total Bilirubin AST ALT Alkaline Phosphatase Total Creatine Kinase CK-MB (Mass) Troponin I Total Protein Albumin Globulin Albumin/Globulin Ratio Triglycerides Cholesterol LDL Cholesterol Direct HDL Cholesterol Vitamin B12 25-OH Vitamin D Total 38.3 Folate Free T4 TSH 3rd Generation
--- NOTE | 2018-06-30 07:25 | CP.PCM.PN ---
Subjective - Date & Time of Evaluation Date of Evaluation: 06/30/18 Time of Evaluation: 07:24 - Subjective Subjective: Medicine Progress Note - Dr Kevin's service Patient seen and examined at bedside. Per nursing no acute events overnight. Patient is tolerating diet. Offers no complaints at this time. Objective - Vital Signs/Intake and Output Vital Signs (last 24 hours): Temp Pulse Resp BP Pulse Ox 97.9 F 63 20 154/66 H 96 06/29/18 23:00 06/30/18 04:10 06/29/18 23:00 06/29/18 23:00 06/29/18 23:00 - Medications Medications: Current Medications Al Hydrox/Mg Hydrox/Simethicone (Maalox 30 Ml) 30 ml PO Q6 PRN PRN Reason: Indigestion / Heartburn Amlodipine Besylate (Norvasc) 10 mg PO DAILY [facility] Last Admin: 06/29/18 10:17 Dose: 10 mg Aspirin (Ecotrin) 81 mg PO DAILY [facility] Last Admin: 06/29/18 10:17 Dose: 81 mg Carvedilol (Coreg) 6.25 mg PO BID [facility] Last Admin: 06/29/18 18:27 Dose: 6.25 mg Clopidogrel Bisulfate (Plavix) 75 mg PO DAILY [facility] Last Admin: 06/29/18 10:17 Dose: 75 mg Docusate Sodium (Colace) 100 mg PO TID [facility] Last Admin: 06/29/18 18:27 Dose: 100 mg Famotidine (Pepcid) 20 mg IVP DAILY [facility] Last Admin: 06/29/18 10:17 Dose: 20 mg Ferrous Sulfate (Feosol) 325 mg PO TID [facility] Last Admin: 06/29/18 18:27 Dose: 325 mg Heparin Sodium (Porcine) (Heparin) 5,000 units SC Q12 [facility] Last Admin: 06/29/18 21:02 Dose: 5,000 units Insulin Aspart (Novolog) 0 unit SC ACHS [facility]; Protocol Last Admin: 06/29/18 21:07 Dose: Not Given Losartan Potassium (Cozaar) 25 mg PO DAILY [facility] Last Admin: 06/29/18 14:52 Dose: 25 mg Rosuvastatin Calcium (Crestor) 10 mg PO HS [facility] Last Admin: 06/29/18 21:02 Dose: 10 mg - Labs Labs: 06/29/18 08:23 06/29/18 08:23 - Head Exam Head Exam: ATRAUMATIC, NORMAL INSPECTION - Eye Exam Eye Exam: EOMI, Normal appearance, PERRL Pupil Exam: NORMAL ACCOMODATION - ENT Exam ENT Exam: Mucous Membranes Moist, Normal Oropharynx - Respiratory Exam Respiratory Exam: Clear to Ausculation Bilateral, NORMAL BREATHING PATTERN. absent: Prolonged Expiratory Phase, Respiratory Distress - Cardiovascular Exam Cardiovascular Exam: REGULAR RHYTHM, +S1, +S2 - GI/Abdominal Exam GI & Abdominal Exam: Soft, Normal Bowel Sounds. absent: Hyperactive Bowel Sounds - Neurological Exam Neurological Exam: Alert, Awake, CN II-XII Intact, Oriented x3 - Psychiatric Exam Psychiatric exam: Normal Affect, Normal Mood. absent: Depressed - Skin Skin Exam: Dry, Intact, Normal Color Assessment and Plan - Assessment and Plan (Free Text) Plan: Chest pain r/o ACS, History of CAD s/p CABG -Admit to telemetry -Troponins negative x 3 -Continue Aspirin 81mg PO daily, plavix 75mg PO daily -Last echocardiogram 03/2018 showed moderate concentric LVH, EF 55-60%, possible moderate , trace TR, left ventricle abnormal size -Patient for possible stress test -Cardiology on consult, Dr Peterson, help appreciated -Continue 75mg PO DAILY Abdominal Pain -Abdominal US: Cholecystectomy, echogenic liver may be seen in the setting of hepatic parenchymal disease or fatty infiltration -Pepcid 20mg IVP daily Renal Insufficiency -BUN/Cr on admission 42/1.9 -Patient states that she was on dialysis for just a month in the past -Nephrology on consult, Dr Guerra, help appreciated Hypertension -Cozaar 25mg PO daily -Norvasc 10mg PO daily Diabetes Mellitus -Hemoglobin A1C 8.3 -Started on insulin sliding scale and accuchecks ACHS History of hyperlipidemia -Triglycerides are elevated -Crestor 10mg PO HS Anemia likely secondary to chronic disease -Continue Ferrous sulfate GI/DVT ppx: -Pepcid 20mg IVP daily -Heparin 5000 SC Q12H Dispo: Awaiting Stress test results. Plan discussed with Dr Dorita Oglesby, PGY-2
[2018-06-30] MEDS: (Novolog) Insulin Aspart, Recombinant 100 u/ml 10 ml vial SC SCH ×4 (07:29→21:57)
--- NOTE | 2018-06-30 07:42 | CP.PCM.PN ---
<Deepika Alegria - Last Filed: 06/30/18 07:39> Subjective - Date & Time of Evaluation Date of Evaluation: 06/30/18 Time of Evaluation: 07:39 - Subjective Subjective: Deepika Alegria, PGY-1, Cardiology Progress Note for Dr. Peterson Patient seen and evaluated at bedside. Patient had no acute overnight events. Patient continues to reports fatigue and shortness of breath but denies chest pain or nausea. Objective - Vital Signs/Intake and Output Vital Signs (last 24 hours): Temp Pulse Resp BP Pulse Ox 97.9 F 63 20 154/66 H 96 06/29/18 23:00 06/30/18 04:10 06/29/18 23:00 06/29/18 23:00 06/29/18 23:00 - Medications Medications: Current Medications Al Hydrox/Mg Hydrox/Simethicone (Maalox 30 Ml) 30 ml PO Q6 PRN PRN Reason: Indigestion / Heartburn Amlodipine Besylate (Norvasc) 10 mg PO DAILY [facility] Last Admin: 06/29/18 10:17 Dose: 10 mg Aspirin (Ecotrin) 81 mg PO DAILY [facility] Last Admin: 06/29/18 10:17 Dose: 81 mg Carvedilol (Coreg) 6.25 mg PO BID [facility] Last Admin: 06/29/18 18:27 Dose: 6.25 mg Clopidogrel Bisulfate (Plavix) 75 mg PO DAILY [facility] Last Admin: 06/29/18 10:17 Dose: 75 mg Docusate Sodium (Colace) 100 mg PO TID [facility] Last Admin: 06/29/18 18:27 Dose: 100 mg Famotidine (Pepcid) 20 mg IVP DAILY [facility] Last Admin: 06/29/18 10:17 Dose: 20 mg Ferrous Sulfate (Feosol) 325 mg PO TID [facility] Last Admin: 06/29/18 18:27 Dose: 325 mg Heparin Sodium (Porcine) (Heparin) 5,000 units SC Q12 [facility] Last Admin: 06/29/18 21:02 Dose: 5,000 units Insulin Aspart (Novolog) 0 unit SC ACHS [facility]; Protocol Last Admin: 06/30/18 07:29 Dose: Not Given Losartan Potassium (Cozaar) 25 mg PO DAILY [facility] Last Admin: 06/29/18 14:52 Dose: 25 mg Rosuvastatin Calcium (Crestor) 10 mg PO HS [facility] Last Admin: 06/29/18 21:02 Dose: 10 mg - Labs Labs: 06/29/18 08:23 06/29/18 08:23 - Constitutional Appears: Well, Non-toxic, No Acute Distress - Head Exam Head Exam: ATRAUMATIC, NORMAL INSPECTION, NORMOCEPHALIC - Eye Exam Eye Exam: EOMI, PERRL - ENT Exam ENT Exam: Mucous Membranes Moist - Respiratory Exam Respiratory Exam: Clear to Auscultation Bilateral, NORMAL BREATHING PATTERN - Cardiovascular Exam Cardiovascular Exam: REGULAR RHYTHM, RRR, +S1, +S2 - GI/Abdominal Exam GI & Abdominal Exam: Normal Bowel Sounds, Soft. absent: Tenderness - Extremities Exam Extremities exam: Positive for: full ROM, normal inspection. Negative for: pedal edema - Neurological Exam Neurological exam: Alert, CN II-XII Intact, Oriented x3 - Skin Skin Exam: Dry, Intact Assessment and Plan (1) Fatigue Assessment & Plan: EKG: NSR with T wave depressions in I and aVL. ST elevation in III and aVF. UNCHANGED FROM PRIOR ADMISSION Tropx3: unremarkable Will evaluate with stress test for possible etiology of fatigue Continue with aspirin, rosuvastatin, coreg, losartan. Status: Acute (2) Diabetes mellitus Assessment & Plan: HgbA1c: 8.3 Continue with sliding scale insulin Status: Acute (3) HTN (hypertension) Assessment & Plan: SBP ranging from 130s to 150s Continue norvasc, coreg Status: Acute (4) Hyperlipidemia Assessment & Plan: T Continue with rosuvastatin. Status: Acute <Medardo Peterson - Last Filed: 07/03/18 08:23> Objective - Vital Signs/Intake and Output Vital Signs (last 24 hours): Temp Pulse Resp BP Pulse Ox 98.3 F 66 20 167/82 H 99 07/03/18 04:36 07/03/18 04:36 07/03/18 04:36 07/03/18 04:36 07/03/18 04:36 - Medications Medications: Current Medications Acetaminophen (Tylenol 325mg Tab) 650 mg PO Q6 PRN PRN Reason: Headache Last Admin: 07/02/18 13:31 Dose: 650 mg Al Hydrox/Mg Hydrox/Simethicone (Maalox 30 Ml) 30 ml PO Q6 PRN PRN Reason: Indigestion / Heartburn Last Admin: 06/30/18 17:32 Dose: 30 ml Amlodipine Besylate (Norvasc) 10 mg PO DAILY [facility] Last Admin: 07/02/18 09:58 Dose: 10 mg Aspirin (Ecotrin) 81 mg PO DAILY [facility] Last Admin: 07/02/18 09:57 Dose: 81 mg Carvedilol (Coreg) 6.25 mg PO BID [facility] Last Admin: 07/02/18 18:12 Dose: 6.25 mg Clopidogrel Bisulfate (Plavix) 75 mg PO DAILY [facility] Last Admin: 07/02/18 09:58 Dose: 75 mg Docusate Sodium (Colace) 100 mg PO TID [facility] Last Admin: 07/02/18 18:12 Dose: 100 mg Epoetin Patrice (Procrit) 4,000 unit [place] [facility] Famotidine (Pepcid) 20 mg IVP DAILY [facility] Last Admin: 07/02/18 09:58 Dose: 20 mg Ferrous Sulfate (Feosol) 325 mg PO TID [facility] Last Admin: 07/02/18 18:12 Dose: 325 mg Hydralazine HCl (Apresoline) 25 mg PO BID [facility] Last Admin: 07/02/18 18:12 Dose: 25 mg Insulin Aspart (Novolog) 0 unit SC [facility]; Protocol Last Admin: 07/02/18 22:09 Dose: 4 units Isosorbide Mononitrate (Imdur Er) 30 mg PO DAILY [facility] Last Admin: 07/02/18 10:30 Dose: 30 mg Losartan Potassium (Cozaar) 50 mg PO DAILY [facility] Last Admin: 07/02/18 09:57 Dose: 50 mg Rosuvastatin Calcium (Crestor) 10 mg PO [facility] Last Admin: 07/02/18 22:08 Dose: 10 mg - Labs Labs: 07/02/18 07:35 07/02/18 07:35 Attending/Attestation - Attestation I have personally seen and examined this patient.: Yes I have fully participated in the care of the patient.: Yes I have reviewed all pertinent clinical information, including history, physical exam and plan: Yes Notes (Text): 07/03/18 08:23 stress test abnl plan for cath tuesday
--- NOTE | 2018-06-30 14:21 | CP.PCM.PN ---
Subjective - Date & Time of Evaluation Date of Evaluation: 06/30/18 Time of Evaluation: 14:19 - Subjective Subjective: Nephrology Consultation Note: Assessment: Stable exertional SOB ? angina Diabetic chronic Kidney Disease (E11.22) Hypertensive Chronic Kidney Disease (I12.9) Chronic Kidney Disease (N18.3) Stage 4 likely due to DM/HTN Anemia (D64.9), CAD s/p CABG PVD based upon recent lower ext arterial doppler study Plan No acute need for renal replacement therapy at this time. Hypertension control with meds as ordered. Maintain hemodynamics stable. Avoid hypotension. continue with current meds. pt at home on raas salomon as losartan 50 mg/d, continue same. Monitor Input/Output, daily weights and renal function with basic metabolic panel continue with statins continue with iron and MVI cardiology following, had stress test. also to evaluate for PVD please. Dose meds/antibiotics for reduced GFR. Avoid fleets enema/magnesium based laxa tives. Avoid nephrotoxins/NSAIDs/ iodinated contrast (unless needed emergently) Glycemic control Further work up/management as per primary team Thanks for allowing me to participate in care of your patient. Will follow patient with you. Please call if any Qs. had d/w team Dr Kaushal Guerra Office: [phone] Chief Complaint; exertional SOB Reason for consult: HTN and CKD HPI: Pt is a 62 F with hx of diabetes Mellitus ( years), hypertension (years) CKD 4 with baseline cr 1.9-2.1, CAD s/p CABG presented with complaints of exertional SOB and seen in renal consult for htn and ckd 4 management. 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 It is better controlled albeit with 5-6 meds. daughter prepare the meds for her but at times, there may be co mpliance issues from pt Denies OTC/herbal meds/NSAIDs No recent iodinated contrast exposure. No obvious episodes of low BP. ROS: Cardiovascular: denies chest pain . Pulmonary: No shortness of breath At present Gastrointestinal: denies abdominal pain No nausea. No vomiting. Genitourinary: No pain while urinating. Denies blood in urine. All other negative except as mentioned in HPI Physical Examination: General Appearance: Comfortable, in no acute respiratory distress, co-operative . Vitals reviewed and noted as below Head; Atraumatic, normocephalic ENT: no ulcers no thrush. Tongue is midline. Oropharynx: no rash or ulcers. EYES: Pupils are equal, round and reactive to light accommodation. Eye muscles and extraocular movement intact. Sclera is anicteric. Neck; supple no lymphadenopathy, no thyromegaly or bruit Lungs: Normal respiratory rate/effort. Breath sounds bilateral equal and clear. has CABG scar Heart: Normal rate. s1s2 normal. No rub or gallop. Extremities: no edema. No varicose veins Neurological: Patient is alert, awake and oriented. No focal deficit. Strength b ilateral appropriate and equal Skin: Warm and dry. Normal turgor. No rash. Palpitation: Normal elasticity for age Abdomen: Abdomen is soft. Bowel sounds +. There is no abdominal tenderness, no guarding/rigidity no organomegaly Psych: lack insight and normal affect/mood MSK: no joint tenderness or swelling. Digits and nails normal, no deformity : kidney or bladder not palpable Labs/imaging reviewed. Past medical history, past surgical history, family history, social history, allergy reviewed and noted as below Family hx: no hx of CKD. Rest non-contributory renal imaging 2018: WNL, normal adrenals Objective - Vital Signs/Intake and Output Vital Signs (last 24 hours): Temp Pulse Resp BP Pulse Ox 98.2 F 68 18 130/60 98 06/30/18 07:05 06/30/18 12:02 06/30/18 07:05 06/30/18 07:05 06/30/18 07:05 - Medications Medications: Current Medications Al Hydrox/Mg Hydrox/Simethicone (Maalox 30 Ml) 30 ml PO Q6 PRN PRN Reason: Indigestion / Heartburn Amlodipine Besylate (Norvasc) 10 mg PO DAILY [facility] Last Admin: 06/30/18 11:29 Dose: 10 mg Aspirin (Ecotrin) 81 mg PO DAILY [facility] Last Admin: 06/30/18 11:29 Dose: 81 mg Carvedilol (Coreg) 6.25 mg PO BID [facility] Last Admin: 06/30/18 11:29 Dose: 6.25 mg Clopidogrel Bisulfate (Plavix) 75 mg PO DAILY [facility] Last Admin: 06/30/18 11:29 Dose: 75 mg Docusate Sodium (Colace) 100 mg PO TID [facility] Last Admin: 06/30/18 13:06 Dose: 100 mg Famotidine (Pepcid) 20 mg IVP DAILY [facility] Last Admin: 06/30/18 11:29 Dose: 20 mg Ferrous Sulfate (Feosol) 325 mg PO TID [facility] Last Admin: 06/30/18 13:07 Dose: 325 mg Heparin Sodium (Porcine) (Heparin) 5,000 units SC Q12 [facility] Last Admin: 06/30/18 11:29 Dose: 5,000 units Insulin Aspart (Novolog) 0 unit SC ACHS [facility]; Protocol Last Admin: 06/30/18 13:07 Dose: 4 units Losartan Potassium (Cozaar) 25 mg PO DAILY [facility] Last Admin: 06/30/18 11:29 Dose: 25 mg Rosuvastatin Calcium (Crestor) 10 mg PO HS [facility] Last Admin: 06/29/18 21:02 Dose: 10 mg - Labs Labs: 06/29/18 08:23 06/29/18 08:23
--- NOTE | 2018-06-30 22:28 | CP.PCM.PCO ---
Physician Communication Note - Physician Communication Note Physician Communication Note: called to see pt for complaints of headache.
[2018-07-01 07:05] LABS: BASO % 0.5 % (0.0-2.0); EOS # 0.2 K/uL (0.0-0.7); HEMOGLOBIN 9.8 g/dL (11.0-16.0); LYMPH # 2.9 K/uL (1.0-4.3); MEAN CELL VOLUME 87.4 fL (81.0-99.0); MEAN CORPUSCULAR HEMOGLOBIN 29.2 pg (27.0-31.0); MEAN CORPUSCULAR HGB CONC 33.4 g/dL (33.0-37.0); MEAN PLATELET VOLUME 9.7 fL (7.2-11.7); MONO # 0.6 K/uL (0.0-0.8); MONO % 9.4 % (0.0-10.0); NEUT # 2.7 K/uL (1.8-7.0); NEUT % 42.1 % (50.0-75.0); NRBC % 0.1 % (0.0-2.0); RBC 3.36 Mil/uL (3.80-5.20); RED CELL DISTRIBUTION WIDTH 13.6 % (11.5-14.5); WHITE BLOOD COUNT 6.3 K/uL (4.8-10.8)
[2018-07-01 07:25] LABS: ALB/GLOB RATIO 1.2 (1.0-2.1); ALBUMIN 3.6 g/dL (3.5-5.0)
[2018-07-01] MEDS: (Novolog) Insulin Aspart, Recombinant 100 u/ml 10 ml vial SC SCH ×4 (08:10→21:56)
[2018-07-01] MEDS ORDERED: Bisacodyl 5mg EC Tab PO ONE (15:10)
--- NOTE | 2018-07-01 15:11 | CP.PCM.PN ---
Subjective - Date & Time of Evaluation Date of Evaluation: 07/01/18 Time of Evaluation: 15:10 - Subjective Subjective: Nephrology Consultation Note: Assessment: Stable exertional SOB ? angina Diabetic chronic Kidney Disease (E11.22) Hypertensive Chronic Kidney Disease (I12.9) Chronic Kidney Disease (N18.3) Stage 4 likely due to DM/HTN Anemia (D64.9), CAD s/p CABG PVD based upon recent lower ext arterial doppler study Plan No acute need for renal replacement therapy at this time. Hypertension control with meds as ordered. Maintain hemodynamics stable. Avoid hypotension. continue with current meds. pt at home on raas salomon as losartan 50 mg/d, continue same. Monitor Input/Output, daily weights and renal function with basic metabolic panel continue with statins continue with iron and MVI cardiology following, had stress test. also to evaluate for PVD please. dulcolax 10 mg once Dose meds/antibiotics for reduced GFR. Avoid fleets enema/magnesium based laxatives. Avoid nephrotoxins/NSAIDs/ iodinated contrast (unless needed emergently) Glycemic control Further work up/management as per primary team Thanks for allowing me to participate in care of your patient. Will follow patient with you. Please call if any Qs. had d/w team Dr Kaushal Guerra Office: [phone] Chief Complaint; exertional SOB Reason for consult: HTN and CKD HPI: Pt is a 62 F with hx of diabetes Mellitus ( years), hypertension (years) CKD 4 with baseline cr 1.9-2.1, CAD s/p CABG presented with complaints of exertional SOB and seen in renal consult for htn and ckd 4 management. 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 It is better controlled albeit with 5-6 meds. daughter prepare the meds for her but at times, there may be compliance issues from pt Denies OTC/herbal meds/NSAIDs No recent iodinated contrast exposure. No obvious episodes of low BP. ROS: feels constipated Cardiovascular: denies chest pain . Pulmonary: No shortness of breath At present Gastrointestinal: denies abdominal pain No nausea. No vomiting. Genitourinary: No pain while urinating. Denies blood in urine. All other negative except as mentioned in HPI Physical Examination: General Appearance: Comfortable, in no acute respiratory distress, co-operative . Vitals reviewed and noted as below Head; Atraumatic, normocephalic ENT: no ulcers no thrush. Tongue is midline. Oropharynx: no rash or ulcers. EYES: Pupils are equal, round and reactive to light accommodation. Eye muscles and extraocular movement intact. Sclera is anicteric. Neck; supple no lymphadenopathy, no thyromegaly or bruit Lungs: Normal respiratory rate/effort. Breath sounds bilateral equal and clear. has CABG scar Heart: Normal rate. s1s2 normal. No rub or gallop. Extremities: no edema. No varicose veins Neurological: Patient is alert, awake and oriented. No focal deficit. Strength bilateral appropriate and equal Skin: Warm and dry. Normal turgor. No rash. Palpitation: Normal elasticity for age Abdomen: Abdomen is soft. Bowel sounds +. There is no abdominal tenderness, no guarding/rigidity no organomegaly Psych: lack insight and normal affect/mood MSK: no joint tenderness or swelling. Digits and nails normal, no deformity : kidney or bladder not palpable Labs/imaging reviewed. Past medical history, past surgical history, family history, social history, allergy reviewed and noted as below Family hx: no hx of CKD. Rest non-contributory renal imaging 2018: WNL, normal adrenals Objective - Vital Signs/Intake and Output Vital Signs (last 24 hours): Temp Pulse Resp BP Pulse Ox 97.2 F L 59 L 20 162/68 H 98 07/01/18 09:56 07/01/18 12:12 07/01/18 09:56 07/01/18 09:56 07/01/18 12:12 Intake and Output: 07/01/18 07/01/18 06:59 18:59 Intake Total 400 Balance 400 - Medications Medications: Current Medications Al Hydrox/Mg Hydrox/Simethicone (Maalox 30 Ml) 30 ml PO Q6 PRN PRN Reason: Indigestion / Heartburn Last Admin: 06/30/18 17:32 Dose: 30 ml Amlodipine Besylate (Norvasc) 10 mg PO DAILY [facility] Last Admin: 07/01/18 09:49 Dose: 10 mg Aspirin (Ecotrin) 81 mg PO DAILY [facility] Last Admin: 07/01/18 09:49 Dose: 81 mg Carvedilol (Coreg) 6.25 mg PO BID [facility] Last Admin: 07/01/18 09:50 Dose: 6.25 mg Clopidogrel Bisulfate (Plavix) 75 mg PO DAILY [facility] Last Admin: 07/01/18 09:49 Dose: 75 mg Docusate Sodium (Colace) 100 mg PO TID [facility] Last Admin: 07/01/18 14:31 Dose: 100 mg Famotidine (Pepcid) 20 mg IVP DAILY [facility] Last Admin: 07/01/18 09:50 Dose: 20 mg Ferrous Sulfate (Feosol) 325 mg PO TID [facility] Last Admin: 07/01/18 14:32 Dose: 325 mg Heparin Sodium (Porcine) (Heparin) 5,000 units SC Q12 [facility] Last Admin: 07/01/18 09:51 Dose: 5,000 units Insulin Aspart (Novolog) 0 unit SC [facility]; Protocol Last Admin: 07/01/18 12:10 Dose: 10 units Rosuvastatin Calcium (Crestor) 10 mg PO HS [facility] Last Admin: 06/30/18 22:15 Dose: 10 mg - Labs Labs: 07/01/18 06:53 07/01/18 06:53
--- NOTE | 2018-07-01 17:45 | CARD ---
APPROVED REPORT Date of service: 06/30/2018 Protocol: LEXISCAN Test Type: LEXISCAN Test Indications: CP Medical History: CP Target HR: 156 bpm Resting ECG: T wave inversion Resting Heart Rate: 64 bpm Resting Blood Pressure: /mmHg submaximum (85%): 133 bpm TEST SUMMARY PREINFSNHYPERV.07:[id number]/80.0. INFUSIONDOSE 100:300.00.01.063/.0. [id number]/80.0. PROCEDURE Pharmacologic stress testing was performed using 0.4mg per 5ml of regadenoson given intravenously over 7-10 seconds. POST EXERCISE Reason for Termination: Protocol Completed Target HR: No Max HR: 63 bpm 64% of Maximum Predicted HR: 156 bpm Exercise duration: 00:30 min:sec, 0 Stage Exercise capacity: 1.0METs Max Blood Pressure: /mmHg Blood Pressure response to exercise: N/A Heart Rate response to exercise: N/A Chest Pain: No, none Angina index: 0 Arrhythmia: No, none ST Change: No, none Deviation: 0 mm EXAM: Myocardial Perfusion REST/STRESS Imaging Protocol The imaging protocol used to acquire images was Rest Tc-99m/stress Tc-99m 1 day Rest Spect myocardial perfusion imaging was performed in supine position 45 minutes following the injection of 13.2 mCi of Tc-99 Myoview. Gated Stress Spect was performed 44 minutes after intravenous 32.5 mCi Tc-99 Myoview injection. The images were gated to evaluate regional wall motion and calculate ventricular ejection fraction.Images were reconstructed using backfilter projection method in short horizontal and verticle long axis. Spect slices were generated. RESTING DATA EDV97.48msBO5.00L/min1/3 Pk. Filling Rate1.47EDV/sec LV Time to Pk. Filling Knrv562.58msec ESV35.00mlMyocardial Bboc992.00gLV Time to Pk. Ejection Luaq640.16msec Pk. Fill Rate2.28EDV/secAv. Heart Rate65.00bpm EF64.00%Pk. Emptying Rate3.41ESV/sec STRESS DATA GYK244.16anFN4.20L/min ESV27.00mlMyocardial Abtk845.00g Pk. Fill Rate2.21EDV/sec EF74.00%Pk. Emptying Rate3.31ESV/sec 1/3 Pk. Filling Rate1.45EDV/secRegional WT score at stress:0.00 LV Time to Pk. Filling Rate:201.39msecRegional WM score at stress:0.00 LV Time to Pk. Ejection Rate:264.30msecSummed WT score at stress:5.00 Av. Heart Rate67.00bpmSummed WM score at stress:2.00 Study quality was fair. Left Ventricular size was Normal at Rest and Stress. Lung uptake was Normal. Left Ventricular ejection fraction is >65%. LV Perfusion 1 Perfusion Defect Location: basal anterolateralmid anterolateral Perfusion Defect Size: Medium (3-4 segments) Perfusion Defect Severity: Severe Type of Perfusion Defect: Persistent TCD/TID: No LV Perf. Quant 17 Seg. SSS12.00 17 Seg. SRS6.00 17 Seg. SDS6.00 Stress Defect Extent (% LAD)5.60Rest Defect Extent (% LAD)0.00Rev. Defect Extent (% LAD)5.60 Stress Defect Extent (% LCX)77.50Rest Defect Extent (% LCX)63.80Rev. Defect Extent (% LCX)2.50 Stress Defect Extent (% RCA)0.00Rest Defect Extent (% RCA)0.00Rev. Defect Extent (% RCA)0.00 Stress Defect Extent (% SHANTANU)22.20Rest Defect Extent (% SHANTANU)12.20Rev. Defect Extent (% SHANTANU)7.20 Other Information Quality:Fair Overall Exercise Capacity: n/a Conclusion 1. - Moderate sized severe intensity partially reversible anterolateral wall defect 2. - Normal LVEF 3. - Further risk stratification with cardiac catheterization recommended
[2018-07-02 07:48] LABS: BASO % 0.6 % (0.0-2.0); EOS # 0.2 K/uL (0.0-0.7); EOS % 3.3 % (0.0-4.0); HEMOGLOBIN 9.7 g/dL (11.0-16.0); LYMPH # 2.4 K/uL (1.0-4.3); LYMPH % 41.4 % (20.0-40.0); MEAN CORPUSCULAR HGB CONC 34.5 g/dL (33.0-37.0); MEAN PLATELET VOLUME 9.7 fL (7.2-11.7); MONO # 0.6 K/uL (0.0-0.8); MONO % 9.8 % (0.0-10.0); NEUT # 2.6 K/uL (1.8-7.0); NEUT % 44.9 % (50.0-75.0); RBC 3.24 Mil/uL (3.80-5.20); RED CELL DISTRIBUTION WIDTH 13.5 % (11.5-14.5); WHITE BLOOD COUNT 5.8 K/uL (4.8-10.8)
[2018-07-02 07:57] LABS: ALB/GLOB RATIO 1.2 (1.0-2.1); ALBUMIN 3.6 g/dL (3.5-5.0); CALCIUM 9.3 mg/dl (8.6-10.4)
[2018-07-02] MEDS: (Novolog) Insulin Aspart, Recombinant 100 u/ml 10 ml vial SC SCH ×5 (09:58→22:09)
--- NOTE | 2018-07-02 11:59 | CP.PCM.PN ---
Subjective - Date & Time of Evaluation Date of Evaluation: 07/02/18 Time of Evaluation: 11:58 - Subjective Subjective: Nephrology Consultation Note: Assessment: Stable exertional SOB ? angina Diabetic chronic Kidney Disease (E11.22) Hypertensive Chronic Kidney Disease (I12.9) Chronic Kidney Disease (N18.3) Stage 4 likely due to DM/HTN Anemia (D64.9), CAD s/p CABG PVD based upon recent lower ext arterial doppler study Plan No acute need for renal replacement therapy at this time. Hypertension control with meds as ordered. Maintain hemodynamics stable. Avoid hypotension. continue with current meds. pt at home on raas salomon as losartan 50 mg/d, continue same. resume hydralazine and imdur Monitor Input/Output, daily weights and renal function with basic metabolic panel continue with statins continue with iron and MVI cardiology following, had abnormal stress test. also to evaluate for PVD please. Dose meds/antibiotics for reduced GFR. Avoid fleets enema/magnesium based laxatives. Avoid nephrotoxins/NSAIDs/ iodinated contrast (unless needed emergently) Glycemic control Further work up/management as per primary team Thanks for allowing me to participate in care of your patient. Will follow patient with you. Please call if any Qs. had d/w team Dr Kaushal Guerra Office: [phone] Chief Complaint; exertional SOB Reason for consult: HTN and CKD HPI: Pt is a 62 F with hx of diabetes Mellitus ( years), hypertension (years) CKD 4 with baseline cr 1.9-2.1, CAD s/p CABG presented with complaints of exertional SOB and seen in renal consult for htn and ckd 4 management. 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 It is better controlled albeit with 5-6 meds. daughter prepare the meds for her but at times, there may be compliance issues from pt Denies OTC/herbal meds/NSAIDs No recent iodinated contrast exposure. No obvious episodes of low BP. ROS: feels constipated better after dulcolax Cardiovascular: denies chest pain . Pulmonary: No shortness of breath At present Gastrointestinal: denies abdominal pain No nausea. No vomiting. Genitourinary: No pain while urinating. Denies blood in urine. All other negative except as mentioned in HPI Physical Examination: General Appearance: Comfortable, in no acute respiratory distress, co-operative . Vitals reviewed and noted as below Head; Atraumatic, normocephalic ENT: no ulcers no thrush. Tongue is midline. Oropharynx: no rash or ulcers. EYES: Pupils are equal, round and reactive to light accommodation. Eye muscles and extraocular movement intact. Sclera is anicteric. Neck; supple no lymphadenopathy, no thyromegaly or bruit Lungs: Normal respiratory rate/effort. Breath sounds bilateral equal and clear. has CABG scar Heart: Normal rate. s1s2 normal. No rub or gallop. Extremities: no edema. No varicose veins Neurological: Patient is alert, awake and oriented. No focal deficit. Strength bilateral appropriate and equal Skin: Warm and dry. Normal turgor. No rash. Palpitation: Normal elasticity for age Abdomen: Abdomen is soft. Bowel sounds +. There is no abdominal tenderness, no guarding/rigidity no organomegaly Psych: lack insight and normal affect/mood MSK: no joint tenderness or swelling. Digits and nails normal, no deformity : kidney or bladder not palpable Labs/imaging reviewed. Past medical history, past surgical history, family history, social history, allergy reviewed and noted as below Family hx: no hx of CKD. Rest non-contributory renal imaging 2018: WNL, normal adrenals Objective - Vital Signs/Intake and Output Vital Signs (last 24 hours): Temp Pulse Resp BP Pulse Ox 98.4 F 61 20 170/70 H 99 07/02/18 07:12 07/02/18 07:12 07/02/18 07:12 07/02/18 07:12 07/02/18 07:12 Intake and Output: 07/02/18 07/02/18 06:59 18:59 Intake Total 450 Balance 450 - Medications Medications: Current Medications Acetaminophen (Tylenol 325mg Tab) 650 mg PO Q6 PRN PRN Reason: Headache Last Admin: 07/01/18 20:51 Dose: 650 mg Al Hydrox/Mg Hydrox/Simethicone (Maalox 30 Ml) 30 ml PO Q6 PRN PRN Reason: Indigestion / Heartburn Last Admin: 06/30/18 17:32 Dose: 30 ml Amlodipine Besylate (Norvasc) 10 mg PO DAILY [facility] Last Admin: 07/02/18 09:58 Dose: 10 mg Aspirin (Ecotrin) 81 mg PO DAILY [facility] Last Admin: 07/02/18 09:57 Dose: 81 mg Carvedilol (Coreg) 6.25 mg PO BID [facility] Last Admin: 07/02/18 09:57 Dose: 6.25 mg Clopidogrel Bisulfate (Plavix) 75 mg PO DAILY [facility] Last Admin: 07/02/18 09:58 Dose: 75 mg Docusate Sodium (Colace) 100 mg PO TID [facility] Last Admin: 07/02/18 09:57 Dose: 100 mg Epoetin Patrice (Procrit) 4,000 unit SC [facility] Famotidine (Pepcid) 20 mg IVP DAILY [facility] Last Admin: 07/02/18 09:58 Dose: 20 mg Ferrous Sulfate (Feosol) 325 mg PO TID [facility] Last Admin: 07/02/18 09:58 Dose: 325 mg Hydralazine HCl (Apresoline) 25 mg PO BID [facility] Insulin Aspart (Novolog) 0 unit SC [facility]; Protocol Last Admin: 07/02/18 09:58 Dose: 4 units Isosorbide Mononitrate (Imdur Er) 30 mg PO DAILY [facility] Losartan Potassium (Cozaar) 50 mg PO DAILY [facility] Last Admin: 07/02/18 09:57 Dose: 50 mg Rosuvastatin Calcium (Crestor) 10 mg PO [facility] Last Admin: 07/01/18 21:25 Dose: 10 mg - Labs Labs: 07/02/18 07:35 07/02/18 07:35
--- NOTE | 2018-07-02 19:56 | CARD ---
APPROVED REPORT Date of service: 06/29/2018 EKG Measurement Heart [id number] <Conclusion> Normal sinus rhythm Lateral wall ischemia ST elevation in the inferior wall most like early repolarization changes VS acute NC Abnormal ECG
--- NOTE | 2018-07-02 20:08 | CARD ---
APPROVED REPORT Date of service: 06/28/2018 EKG Measurement Heart [id number] <Conclusion> Sinus bradycardia Lateral wall ischemia Early repolarization changes vs inferior wall DC, acute Abnormal ECG
--- NOTE | 2018-07-02 21:22 | HP ---
HISTORY OF PRESENT ILLNESS: The patient admitted to hospital with chief complaint of chest pain and shortness of breath with history of coronary artery disease status post bypass surgery. The patient came to the ER, advised admission. The patient has history of diabetes, hypertension. PHYSICAL EXAMINATION: GENERAL: The patient is awake, alert,and oriented. VITAL SIGNS: Temperature 98, pulse 90. HEENT: Within normal limits. NECK: Supple. CHEST: Symmetrical. HEART: Regular. ABDOMEN: Soft. EXTREMITIES: No edema. IMPRESSION AND PLAN: Patient suffers from , congestive heart failure, coronary artery disease. The patient is to get bedrest, supportive care. Nitesh Kevin MD
--- NOTE | 2018-07-03 07:12 | CP.PCM.PN ---
Subjective - Date & Time of Evaluation Date of Evaluation: 07/03/18 Time of Evaluation: 07:12 - Subjective Subjective: PGY [address] Kevin's service Patient seen and examined at bedside. Per nursing no acute events overnight. Patient denies chest pain at rest, but admits when she "walks greater than 1 block" she feels "chest tightness and short of breath." Tolerating appetite and voiding well. Objective - Vital Signs/Intake and Output Vital Signs (last 24 hours): Temp Pulse Resp BP Pulse Ox 98.3 F 66 20 167/82 H 99 07/03/18 04:36 07/03/18 04:36 07/03/18 04:36 07/03/18 04:36 07/03/18 04:36 - Medications Medications: Current Medications Acetaminophen (Tylenol 325mg Tab) 650 mg PO Q6 PRN PRN Reason: Headache Last Admin: 07/02/18 13:31 Dose: 650 mg Al Hydrox/Mg Hydrox/Simethicone (Maalox 30 Ml) 30 ml PO Q6 PRN PRN Reason: Indigestion / Heartburn Last Admin: 06/30/18 17:32 Dose: 30 ml Amlodipine Besylate (Norvasc) 10 mg PO DAILY [facility] Last Admin: 07/02/18 09:58 Dose: 10 mg Aspirin (Ecotrin) 81 mg PO DAILY [facility] Last Admin: 07/02/18 09:57 Dose: 81 mg Carvedilol (Coreg) 6.25 mg PO BID [facility] Last Admin: 07/02/18 18:12 Dose: 6.25 mg Clopidogrel Bisulfate (Plavix) 75 mg PO DAILY [facility] Last Admin: 07/02/18 09:58 Dose: 75 mg Docusate Sodium (Colace) 100 mg PO TID [facility] Last Admin: 07/02/18 18:12 Dose: 100 mg Epoetin Patrice (Procrit) 4,000 unit SC [facility] Famotidine (Pepcid) 20 mg IVP DAILY [facility] Last Admin: 07/02/18 09:58 Dose: 20 mg Ferrous Sulfate (Feosol) 325 mg PO TID [facility] Last Admin: 07/02/18 18:12 Dose: 325 mg Hydralazine HCl (Apresoline) 25 mg PO BID [facility] Last Admin: 07/02/18 18:12 Dose: 25 mg Insulin Aspart (Novolog) 0 unit SC ACHS [facility]; Protocol Last Admin: 07/02/18 22:09 Dose: 4 units Isosorbide Mononitrate (Imdur Er) 30 mg PO DAILY [facility] Last Admin: 07/02/18 10:30 Dose: 30 mg Losartan Potassium (Cozaar) 50 mg PO DAILY [facility] Last Admin: 07/02/18 09:57 Dose: 50 mg Rosuvastatin Calcium (Crestor) 10 mg PO HS [facility] Last Admin: 07/02/18 22:08 Dose: 10 mg - Labs Labs: 07/02/18 07:35 07/02/18 07:35 - Additional Findings Additional findings: - Head Exam Head Exam: ATRAUMATIC, NORMAL INSPECTION - Eye Exam Eye Exam: EOMI, Normal appearance, PERRL Pupil Exam: NORMAL ACCOMODATION - ENT Exam ENT Exam: Mucous Membranes Moist, Normal Oropharynx - Respiratory Exam Respiratory Exam: Clear to Ausculation Bilateral, NORMAL BREATHING PATTERN. absent: Prolonged Expiratory Phase, Respiratory Distress - Cardiovascular Exam Cardiovascular Exam: REGULAR RHYTHM, +S1, +S2 - GI/Abdominal Exam GI & Abdominal Exam: Soft, Normal Bowel Sounds. absent: Hyperactive Bowel So unds - Neurological Exam Neurological Exam: Alert, Awake, CN II-XII Intact, Oriented x3 - Psychiatric Exam Psychiatric exam: Normal Affect, Normal Mood. absent: Depressed - Skin Skin Exam: Dry, Intact, Normal Color Assessment and Plan - Assessment and Plan (Free Text) Plan: Chest pain r/o ACS, History of CAD s/p CABG -Admit to telemetry -Troponins negative x 3 -Continue Aspirin 81mg PO daily, plavix 75mg PO daily -Last echocardiogram 03/2018 showed moderate concentric LVH, EF 55-60%, possible moderate , trace TR, left ventricle abnormal size Cardiology on consult, Dr Peterson, help appreciated - stress test abnormal; cath for later today f/u cath results Abdominal Pain -Abdominal US: Cholecystectomy, echogenic liver may be seen in the setting of hepatic parenchymal disease or fatty infiltration -Pepcid 20mg IVP daily Renal Insufficiency -BUN/Cr on admission 42/1.9 -Patient states that she was on dialysis for just a month in the past Nephrology on consult, Dr Guerra, help appreciated - No [employer] needed at this time - continue current HTN meds Hypertension -Cozaar 25mg PO daily -Norvasc 10mg PO daily -imdur 30mg PO daily Diabetes Mellitus -Hemoglobin A1C 8.3 -Started on insulin sliding scale and accuchecks ACHS -Start Lantus 10mg SC HS History of hyperlipidemia -Triglycerides are elevated -Crestor 10mg PO HS Anemia likely secondary to chronic disease -Continue Ferrous sulfate Elevated Phosphorus Phos 5.0 Start Phos-lo BID to start 07/04/18 GI/DVT ppx: -Pepcid 20mg IVP daily -Heparin 5000 SC Q12H NPO for CATH Dispo: Stress test abnormal; cardiac cath today. Plan discussed with Dr Dorita Zarate PGY3
--- NOTE | 2018-07-03 08:24 | CP.PCM.PN ---
Subjective - Date & Time of Evaluation Date of Evaluation: 07/03/18 Time of Evaluation: 08:23 - Subjective Subjective: stress test abnl plan for cath today Objective - Vital Signs/Intake and Output Vital Signs (last 24 hours): Temp Pulse Resp BP Pulse Ox 98.3 F 66 20 167/82 H 99 07/03/18 04:36 07/03/18 04:36 07/03/18 04:36 07/03/18 04:36 07/03/18 04:36 - Medications Medications: Current Medications Acetaminophen (Tylenol 325mg Tab) 650 mg PO Q6 PRN PRN Reason: Headache Last Admin: 07/02/18 13:31 Dose: 650 mg Al Hydrox/Mg Hydrox/Simethicone (Maalox 30 Ml) 30 ml PO Q6 PRN PRN Reason: Indigestion / Heartburn Last Admin: 06/30/18 17:32 Dose: 30 ml Amlodipine Besylate (Norvasc) 10 mg PO DAILY [facility] Last Admin: 07/02/18 09:58 Dose: 10 mg Aspirin (Ecotrin) 81 mg PO DAILY [facility] Last Admin: 07/02/18 09:57 Dose: 81 mg Carvedilol (Coreg) 6.25 mg PO BID [facility] Last Admin: 07/02/18 18:12 Dose: 6.25 mg Clopidogrel Bisulfate (Plavix) 75 mg PO DAILY [facility] Last Admin: 07/02/18 09:58 Dose: 75 mg Docusate Sodium (Colace) 100 mg PO TID [facility] Last Admin: 07/02/18 18:12 Dose: 100 mg Epoetin Patrice (Procrit) 4,000 unit SC [facility] Famotidine (Pepcid) 20 mg IVP DAILY [facility] Last Admin: 07/02/18 09:58 Dose: 20 mg Ferrous Sulfate (Feosol) 325 mg PO TID [facility] Last Admin: 07/02/18 18:12 Dose: 325 mg Hydralazine HCl (Apresoline) 25 mg PO BID [facility] Last Admin: 07/02/18 18:12 Dose: 25 mg Insulin Aspart (Novolog) 0 unit SC [facility]; Protocol Last Admin: 07/02/18 22:09 Dose: 4 units Isosorbide Mononitrate (Imdur Er) 30 mg PO DAILY [facility] Last Admin: 07/02/18 10:30 Dose: 30 mg Losartan Potassium (Cozaar) 50 mg PO DAILY [facility] Last Admin: 07/02/18 09:57 Dose: 50 mg Rosuvastatin Calcium (Crestor) 10 mg PO HS [facility] Last Admin: 07/02/18 22:08 Dose: 10 mg - Labs Labs: 07/02/18 07:35 07/02/18 07:35 - Constitutional Appears: Well - Head Exam Head Exam: ATRAUMATIC, NORMAL INSPECTION, NORMOCEPHALIC - Eye Exam Eye Exam: EOMI, Normal appearance, PERRL Pupil Exam: NORMAL ACCOMODATION, PERRL - ENT Exam ENT Exam: Mucous Membranes Moist, Normal Exam - Neck Exam Neck Exam: Full ROM, Normal Inspection. absent: Lymphadenopathy - Respiratory Exam Respiratory Exam: Clear to Ausculation Bilateral, NORMAL BREATHING PATTERN - Cardiovascular Exam Cardiovascular Exam: REGULAR RHYTHM, +S1, +S2. absent: Murmur - GI/Abdominal Exam GI & Abdominal Exam: Soft, Normal Bowel Sounds. absent: Tenderness - Rectal Exam Rectal Exam: NORMAL INSPECTION - Exam Exam: Circumcision, NORMAL INSPECTION External exam: NORMAL EXTERNAL EXAM Speculum exam: NORMAL SPECULUM EXAM Bimanual exam: NORMAL BIMANUAL EXAM - Extremities Exam Extremities Exam: Full ROM, Normal Capillary Refill, Normal Inspection. absent: Joint Swelling, Pedal Edema - Back Exam Back Exam: NORMAL INSPECTION - Neurological Exam Neurological Exam: Alert, Awake, CN II-XII Intact, Normal Gait, Oriented x3 - Psychiatric Exam Psychiatric exam: Normal Affect, Normal Mood - Skin Skin Exam: Dry, Intact, Normal Color, Warm Assessment and Plan (1) Fatigue Status: Acute (2) Diabetes mellitus Status: Acute (3) Hyperlipidemia Status: Acute (4) Abnormal EKG Status: Acute (5) HTN (hypertension) Status: Acute
[2018-07-03] MEDS: (Novolog) Insulin Aspart, Recombinant 100 u/ml 10 ml vial SC SCH ×4 (08:37→22:09)
[2018-07-03] MEDS ORDERED: Epoetin Alfa 4000 UNIT/ML Inj SC SCH (09:00)
[2018-07-03] MEDS ORDERED: (Novolog) Insulin Aspart, Recombinant 100 u/ml 10 ml vial SC ONE (11:37)
[2018-07-03] MEDS ORDERED: Midazolam 2 MG/2 ML VIAL ONE ×3 (14:03→14:26)
[2018-07-03] MEDS ORDERED: Iodixanol 320 MG/ML 100 ML BOTTLE IV ONE ×2 (14:08→14:22)
[2018-07-03] MEDS ORDERED: Lidocaine 2% MPF (5 ml) Inj ONE (14:08)
[2018-07-03] MEDS ORDERED: Verapamil 2 ML ONE (14:09)
[2018-07-03] MEDS ORDERED: Sodium Chloride 0.9% 1,000 ML IV SCH ×2 (14:30→16:15)
--- NOTE | 2018-07-03 16:11 | CP.PCM.PN ---
Subjective - Date & Time of Evaluation Date of Evaluation: 07/03/18 Time of Evaluation: 16:10 - Subjective Subjective: Nephrology Consultation Note: Assessment: Stable exertional SOB ? angina Diabetic chronic Kidney Disease (E11.22) Hypertensive Chronic Kidney Disease (I12.9) Chronic Kidney Disease (N18.3) Stage 4 likely due to DM/HTN Anemia (D64.9), CAD s/p CABG PVD based upon recent lower ext arterial doppler study Plan No acute need for renal replacement therapy at this time. Hypertension control with meds as ordered. Maintain hemodynamics stable. Avoid hypotension. continue with current meds. pt at home on raas salomon as losartan 50 mg/d, continue same. resume hydralazine and imdur Monitor Input/Output, daily weights and renal function with basic metabolic panel continue with statins continue with iron and MVI cardiology following, had abnormal stress test. also to evaluate for PVD please. IVF as NS @ 100 ml/hr for 10 hrs after cath Dose meds/antibiotics for reduced GFR. Avoid fleets enema/magnesium based laxatives. Avoid nephrotoxins/NSAIDs/ iodinated contrast (unless needed emergently) Glycemic control Further work up/management as per primary team Thanks for allowing me to participate in care of your patient. Will follow patient with you. Please call if any Qs. had d/w team Dr Kaushal Guerra Office: [phone] Chief Complaint; exertional SOB Reason for consult: HTN and CKD HPI: Pt is a 62 F with hx of diabetes Mellitus ( years), hypertension (years) CKD 4 with baseline cr 1.9-2.1, CAD s/p CABG presented with complaints of exertional SOB and seen in renal consult for htn and ckd 4 management. 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 It is better controlled albeit with 5-6 meds. daughter prepare the meds for her but at times, there may be compliance issues from pt Denies OTC/herbal meds/NSAIDs No recent iodinated contrast exposure. No obvious episodes of low BP. ROS: s/p cath 07/03/18 Cardiovascular: denies chest pain . Pulmonary: No shortness of breath At present Gastrointestinal: denies abdominal pain No nausea. No vomiting. Genitourinary: No pain while urinating. Denies blood in urine. All other negative except as mentioned in HPI Physical Examination: General Appearance: Comfortable, in no acute respiratory distress, co-operative . Vitals reviewed and noted as below Head; Atraumatic, normocephalic ENT: no ulcers no thrush. Tongue is midline. Oropharynx: no rash or ulcers. EYES: Pupils are equal, round and reactive to light accommodation. Eye muscles and extraocular movement intact. Sclera is anicteric. Neck; supple no lymphadenopathy, no thyromegaly or bruit Lungs: Normal respiratory rate/effort. Breath sounds bilateral equal and clear. has CABG scar Heart: Normal rate. s1s2 normal. No rub or gallop. Extremities: no edema. No varicose veins Neurological: Patient is alert, awake and oriented. No focal deficit. Strength bilateral appropriate and equal Skin: Warm and dry. Normal turgor. No rash. Palpitation: Normal elasticity for age Abdomen: Abdomen is soft. Bowel sounds +. There is no abdominal tenderness, no guarding/rigidity no organomegaly Psych: lack insight and normal affect/mood MSK: no joint tenderness or swelling. Digits and nails normal, no deformity : kidney or bladder not palpable Labs/imaging reviewed. Past medical history, past surgical history, family history, social history, allergy reviewed and noted as below Family hx: no hx of CKD. Rest non-contributory renal imaging 2018: WNL, normal adrenals Objective - Vital Signs/Intake and Output Vital Signs (last 24 hours): Temp Pulse Resp BP Pulse Ox 98.3 F 66 20 167/82 H 99 07/03/18 04:36 07/03/18 04:36 07/03/18 04:36 07/03/18 04:36 07/03/18 04:36 - Medications Medications: Current Medications Acetaminophen (Tylenol 325mg Tab) 650 mg PO Q6 PRN PRN Reason: Headache Last Admin: 07/02/18 13:31 Dose: 650 mg Al Hydrox/Mg Hydrox/Simethicone (Maalox 30 Ml) 30 ml PO Q6 PRN PRN Reason: Indigestion / Heartburn Last Admin: 06/30/18 17:32 Dose: 30 ml Amlodipine Besylate (Norvasc) 10 mg PO DAILY [facility] Last Admin: 07/03/18 09:32 Dose: 10 mg Aspirin (Ecotrin) 81 mg PO DAILY [facility] Last Admin: 07/03/18 09:31 Dose: 81 mg [facility] Carvedilol (Coreg) 6.25 mg PO BID [facility] Last Admin: 07/03/18 09:32 Dose: 6.25 mg Clopidogrel Bisulfate (Plavix) 75 mg PO DAILY [facility] Last Admin: 07/03/18 09:32 Dose: 75 mg Docusate Sodium (Colace) 100 mg PO TID [facility] Last Admin: 07/03/18 14:29 Dose: Not Given Epoetin Patrice (Procrit) 4,000 unit SC MWF [facility] Last Admin: 07/03/18 09:31 Dose: 4,000 unit Famotidine (Pepcid) 20 mg IVP DAILY [facility] Last Admin: 07/03/18 09:31 Dose: 20 mg Ferrous Sulfate (Feosol) 325 mg PO TID [facility] Last Admin: 07/03/18 14:30 Dose: Not Given Fluticasone Propionate (Flonase) 1 spr KRISTIN DAILY [facility] Hydralazine HCl (Apresoline) 25 mg PO BID [facility] Last Admin: 07/03/18 09:39 Dose: 25 mg Sodium Chloride (Sodium Chloride 0.9%) 1,000 mls @ 50 mls/hr IV .Q20H [facility] Stop: 07/04/18 02:31 Insulin Aspart (Novolog) 0 unit SC ACHS [facility]; Protocol Last Admin: 07/03/18 12:41 Dose: Not Given Insulin Glargine (Lantus) 10 unit SC 2200 [facility] Isosorbide Mononitrate (Imdur Er) 30 mg PO DAILY [facility] Last Admin: 07/03/18 09:32 Dose: 30 mg Losartan Potassium (Cozaar) 50 mg PO DAILY [facility] Last Admin: 07/03/18 09:31 Dose: 50 mg Rosuvastatin Calcium (Crestor) 10 mg PO HS [facility] Last Admin: 07/02/18 22:08 Dose: 10 mg - Labs Labs: 07/02/18 07:35 07/02/18 07:35
[2018-07-03] MEDS ORDERED: (Lantus) Insulin Glargine, Recombinant SC SCH (22:00)
--- NOTE | 2018-07-04 01:08 | CARDCATH ---
PROCEDURE DATE: 07/03/2018 INDICATIONS: Ms. Annetta Ladd is a 62-year-old female with past medical history significant for CAD, status post CABG, presented with complaints of fatigue, lethargy, and severe dyspnea on exertion. The patient underwent a nuclear stress test showing anterior lateral ischemia and therefore was brought to the maintenance shop laborer for further evaluation and treatment. PROCEDURES PERFORMED: Left heart catheterization with selective left and right coronary angiograms, selective left internal mammary artery to left anterior descending angiogram, selective saphenous vein graft to right posterior descending artery angiogram, left ventriculogram, 6-[place] left radial arterial access, wrist band for hemostasis. ANGIOGRAPHIC FINDINGS: Bypass anatomy: HERRING to distal LAD is patent. SVG to right PDA is patent. The other vein grafts are occluded. [place] coronary anatomy: Left main large-sized vessel bifurcates into left anterior descending and left circumflex coronary artery. Left circumflex diffusely diseased, approximate distal 80% to 90% stenosis, gives off a small-sized obtuse marginal branch with high-grade stenosis. Proximal LAD has a stent which is patent. Mid LAD is 100% occluded and give off three septal perforators and a diagonal which is small sized with a proximal high-grade stenosis. RCA large-sized vessel with proximal 80%, distal 100% occlusion. Diffusely diseased vessel with competitive flow noted into the PDA. IMPRESSION: Severe rampart triple-vessel disease. Two grafts are patent. RECOMMENDATIONS: Continue aggressive medical management and add the patient on Ranexa. Consider high-risk revascularization of LAD if the patient continues to have persistent symptoms on maximum medical therapy in four to six weeks. Thank you Dr. Kevin for letting me participate in the care of your patient. Medardo Peterson MD cc: Nitesh Kevin MD
[2018-07-04 08:02] LABS: BASO % 0.5 % (0.0-2.0); EOS # 0.2 K/uL (0.0-0.7); EOS % 3.3 % (0.0-4.0); HEMOGLOBIN 9.6 g/dL (11.0-16.0); LYMPH # 2.2 K/uL (1.0-4.3); MEAN CELL VOLUME 87.8 fL (81.0-99.0); MEAN CORPUSCULAR HEMOGLOBIN 29.6 pg (27.0-31.0); MEAN CORPUSCULAR HGB CONC 33.7 g/dL (33.0-37.0); MONO # 0.6 K/uL (0.0-0.8); MONO % 8.9 % (0.0-10.0); NEUT # 3.5 K/uL (1.8-7.0); NEUT % 53.3 % (50.0-75.0); RBC 3.24 Mil/uL (3.80-5.20); RED CELL DISTRIBUTION WIDTH 13.8 % (11.5-14.5); WHITE BLOOD COUNT 6.5 K/uL (4.8-10.8)
[2018-07-04 08:18] LABS: ALB/GLOB RATIO 1.2 (1.0-2.1); ALBUMIN 3.6 g/dL (3.5-5.0); ALT/SGPT < 6 U/L (9-52); AST/SGOT 19 U/L (14-36); BLOOD UREA NITROGEN 47 mg/dL (7-17); CALCIUM 9.3 mg/dl (8.6-10.4); GFR NON-AFRICAN AMERICAN 24
[2018-07-04] MEDS: (Novolog) Insulin Aspart, Recombinant 100 u/ml 10 ml vial SC SCH ×3 (08:45→17:30)
--- NOTE | 2018-07-04 09:45 | CP.PCM.PN ---
Subjective - Date & Time of Evaluation Date of Evaluation: 07/04/18 Time of Evaluation: 09:43 - Subjective Subjective: PGY [address] Kevin's service Patient seen and examined at bedside. Per nursing no acute events overnight. Patient aware of cath results from yesterday. She denies chest pain or shortness of breath today. Tolerating diet and eating well. Objective - Vital Signs/Intake and Output Vital Signs (last 24 hours): Temp Pulse Resp BP Pulse Ox 98.1 F 87 20 165/59 H 98 07/04/18 07:20 07/04/18 07:20 07/04/18 07:20 07/04/18 07:20 07/04/18 07:20 Intake and Output: 07/04/18 07/04/18 06:59 18:59 Intake Total 1030 Balance 1030 - Medications Medications: Current Medications Acetaminophen (Tylenol 325mg Tab) 650 mg PO Q6 PRN PRN Reason: Headache Last Admin: 07/04/18 05:22 Dose: 650 mg Al Hydrox/Mg Hydrox/Simethicone (Maalox 30 Ml) 30 ml PO Q6 PRN PRN Reason: Indigestion / Heartburn Last Admin: 06/30/18 17:32 Dose: 30 ml Amlodipine Besylate (Norvasc) 10 mg PO DAILY [facility] Last Admin: 07/03/18 09:32 Dose: 10 mg Aspirin (Ecotrin) 81 mg PO DAILY [facility] Last Admin: 07/03/18 09:31 Dose: 81 mg [facility] Carvedilol (Coreg) 6.25 mg PO BID [facility] Last Admin: 07/03/18 18:58 Dose: 6.25 mg Clopidogrel Bisulfate (Plavix) 75 mg PO DAILY [facility] Last Admin: 07/03/18 09:32 Dose: 75 mg Docusate Sodium (Colace) 100 mg PO TID [facility] Last Admin: 07/03/18 18:58 Dose: 100 mg Epoetin Patrice (Procrit) 4,000 unit SC [facility] Last Admin: 07/03/18 09:31 Dose: 4,000 unit Famotidine (Pepcid) 20 mg IVP DAILY [facility] Last Admin: 07/03/18 09:31 Dose: 20 mg Ferrous Sulfate (Feosol) 325 mg PO TID [facility] Last Admin: 07/03/18 18:58 Dose: 325 mg Fluticasone Propionate (Flonase) 1 spr KRISTIN DAILY [facility] Hydralazine HCl (Apresoline) 25 mg PO BID [facility] Last Admin: 07/03/18 18:58 Dose: 25 mg Insulin Aspart (Novolog) 0 unit SC ACHS [facility]; Protocol Last Admin: 07/03/18 22:09 Dose: Not Given Insulin Glargine (Lantus) 10 unit SC 2200 [facility] Last Admin: 07/03/18 22:07 Dose: 10 units Isosorbide Mononitrate (Imdur Er) 30 mg PO DAILY [facility] Last Admin: 07/03/18 09:32 Dose: 30 mg Losartan Potassium (Cozaar) 50 mg PO DAILY [facility] Last Admin: 07/03/18 09:31 Dose: 50 mg Rosuvastatin Calcium (Crestor) 10 mg PO HS [facility] Last Admin: 07/03/18 21:29 Dose: 10 mg - Labs Labs: 07/04/18 07:51 07/04/18 07:51 - Additional Findings Additional findings: - Head Exam Head Exam: ATRAUMATIC, NORMAL INSPECTION - Eye Exam Eye Exam: EOMI, Normal appearance, PERRL Pupil Exam: NORMAL ACCOMODATION - ENT Exam ENT Exam: Mucous Membranes Moist, Normal Oropharynx - Respiratory Exam Respiratory Exam: Clear to Ausculation Bilateral, NORMAL BREATHING PATTERN. absent: Prolonged Expiratory Phase, Respiratory Distress - Cardiovascular Exam Cardiovascular Exam: REGULAR RHYTHM, +S1, +S2 - GI/Abdominal Exam GI & Abdominal Exam: Soft, Normal Bowel Sounds. absent: Hyperactive Bowel Sounds - Neurological Exam Neurological Exam: Alert, Awake, CN II-XII Intact, Oriented x3 - Psychiatric Exam Psychiatric exam: Normal Affect, Normal Mood. absent: Depressed - Skin Skin Exam: Dry, Intact, Normal Color Assessment and Plan - Assessment and Plan (Free Text) Plan: Chest pain r/o ACS, History of CAD s/p CABG -Admit to telemetry -Troponins negative x 3 -Continue Aspirin 81mg PO daily, plavix 75mg PO daily -Last echocardiogram 03/2018 showed moderate concentric LVH, EF 55-60%, possible moderate , trace TR, left ventricle abnormal size Cardiology on consult, Dr Peterson, help appreciated -stress test abnormal -cath (07/03/18): Left circumflex - diffusely diseased (80-90% stenosis distally); Prox LAD with patent stent; Mid LAD 100% occluded; RCA - proximal 80%, distal 100% occluded (summary, see Dr Peterson's full report) - recommend max medical therapy with addition of Ranexa Abdominal Pain -Abdominal US: Cholecystectomy, echogenic liver may be seen in the setting of hepatic parenchymal disease or fatty infiltration -Pepcid 20mg IVP daily Renal Insufficiency -BUN/Cr on admission 42/1.9 -Patient states that she was on dialysis for just a month in the past Nephrology on consult, Dr Guerra, help appreciated - No MEDICAL PATHOLOGIST needed at this time - continue current HTN meds Hypertension -Cozaar 25mg PO daily -Norvasc 10mg PO daily -imdur 30mg PO daily Diabetes Mellitus -Hemoglobin A1C 8.3 -Started on insulin sliding scale and accuchecks ACHS -Start Lantus 10mg SC HS History of hyperlipidemia -Triglycerides are elevated -Crestor 10mg PO HS Anemia likely secondary to chronic disease -Continue Ferrous sulfate Elevated Phosphorus Phos 5.0 Start Phos-lo BID to start 07/04/18 GI/DVT ppx: -Pepcid 20mg IVP daily -Heparin 5000 SC Q12H Dispo: Stress test abnormal; Cath with diffuse disease in multi-vessels -> max medical therapy, if persistent high-risk revascularization. Patient stable for discharge per Dorita. Follow up outpatient with cardio and nephro. Plan discussed with Dr Dorita Zarate PGY3
[2018-07-04] MEDS ORDERED: Fluticasone Nasal 50 mcg/Spray NAS SCH (10:00)
--- NOTE | 2018-07-04 11:21 | CP.PCM.PN ---
Subjective - Date & Time of Evaluation Date of Evaluation: 07/04/18 Time of Evaluation: 11:20 - Subjective Subjective: Nephrology Consultation Note: Assessment: Stable exertional SOB with angina Diabetic chronic Kidney Disease (E11.22) Hypertensive Chronic Kidney Disease (I12.9) Chronic Kidney Disease (N18.3) Stage 4 likely due to DM/HTN Anemia (D64.9), CAD s/p CABG PVD based upon recent lower ext arterial doppler study Plan No acute need for renal replacement therapy at this time. Hypertension control with meds as ordered. Maintain hemodynamics stable. Avoid hypotension. continue with current meds. pt at home on raas salomon as losartan 50 mg/d, continue same. resume hydralazine and imdur: increased to 60 mg/d Monitor Input/Output, daily weights and renal function with basic metabolic panel continue with statins continue with iron and MVI cardiology following, had abnormal stress test and cardiac cath. also to f/up for PVD please (d/w cardiology). Dose meds/antibiotics for reduced GFR. Avoid fleets enema/magnesium based laxatives. Avoid nephrotoxins/NSAIDs/ iodinated contrast (unless needed emergently) Glycemic control Further work up/management as per primary team Thanks for allowing me to participate in care of your patient. Will follow patient with you. Please call if any Qs. had d/w team Dr Kaushal Guerra Office: [phone] Chief Complaint; exertional SOB Reason for consult: HTN and CKD HPI: Pt is a 62 F with hx of diabetes Mellitus ( years), hypertension (years) CKD 4 with baseline cr 1.9-2.1, CAD s/p CABG presented with complaints of exertional SOB and seen in renal consult for htn and ckd 4 management. 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 It is better controlled albeit with 5-6 meds. daughter prepare the meds for her but at times, there may be compliance issues from pt Denies OTC/herbal meds/NSAIDs No recent iodinated contrast exposure. No obvious episodes of low BP. ROS: s/p cath 07/03/18 Cardiovascular: denies chest pain . Pulmonary: No shortness of breath At present Gastrointestinal:c/o upper abdominal pain No nausea. No vomiting. Genitourinary: No pain while urinating. Denies blood in urine. All other negative except as mentioned in HPI Physical Examination: General Appearance: Comfortable, in no acute respiratory distress, co-operative . Vitals reviewed and noted as below Head; Atraumatic, normocephalic ENT: no ulcers no thrush. Tongue is midline. Oropharynx: no rash or ulcers. EYES: Pupils are equal, round and reactive to light accommodation. Eye muscles and extraocular movement intact. Sclera is anicteric. Neck; supple no lymphadenopathy, no thyromegaly or bruit Lungs: Normal respiratory rate/effort. Breath sounds bilateral equal and clear. has CABG scar Heart: Normal rate. s1s2 normal. No rub or gallop. Extremities: no edema. No varicose veins Neurological: Patient is alert, awake and oriented. No focal deficit. Strength bilateral appropriate and equal Skin: Warm and dry. Normal turgor. No rash. Palpitation: Normal elasticity for age Abdomen: Abdomen is soft. Bowel sounds +. There is no abdominal tenderness, no guarding/rigidity no organomegaly Psych: lack insight and normal affect/mood MSK: no joint tenderness or swelling. Digits and nails normal, no deformity : kidney or bladder not palpable Labs/imaging reviewed. Past medical history, past surgical history, family history, social history, allergy reviewed and noted as below Family hx: no hx of CKD. Rest non-contributory renal imaging 2018: WNL, normal adrenals Objective - Vital Signs/Intake and Output Vital Signs (last 24 hours): Temp Pulse Resp BP Pulse Ox 98.1 F 87 20 165/59 H 98 07/04/18 07:20 07/04/18 07:20 07/04/18 07:20 07/04/18 07:20 07/04/18 07:20 Intake and Output: 07/04/18 07/04/18 06:59 18:59 Intake Total 1030 Balance 1030 - Medications Medications: Current Medications Acetaminophen (Tylenol 325mg Tab) 650 mg PO Q6 PRN PRN Reason: Headache Last Admin: 07/04/18 05:22 Dose: 650 mg Al Hydrox/Mg Hydrox/Simethicone (Maalox 30 Ml) 30 ml PO Q6 PRN PRN Reason: Indigestion / Heartburn Last Admin: 06/30/18 17:32 Dose: 30 ml Amlodipine Besylate (Norvasc) 10 mg PO DAILY [facility] Last Admin: 07/04/18 10:26 Dose: 10 mg Aspirin (Ecotrin) 81 mg PO DAILY [facility] Last Admin: 07/04/18 10:27 Dose: 81 mg Calcium [facility] ([facility]lo) [facility] Carvedilol (Coreg) 6.25 mg PO BID [facility] Last Admin: 07/04/18 10:26 Dose: 6.25 mg Clopidogrel Bisulfate (Plavix) 75 mg PO DAILY [facility] Last Admin: 07/04/18 10:26 Dose: 75 mg Docusate Sodium (Colace) 100 mg PO TID [facility] Last Admin: 07/04/18 10:26 Dose: 100 mg Epoetin Patrice (Procrit) 4,000 unit SC MWF [facility] Last Admin: 07/03/18 09:31 Dose: 4,000 unit Famotidine (Pepcid) 20 mg IVP DAILY [facility] Last Admin: 07/04/18 10:27 Dose: 20 mg Ferrous Sulfate (Feosol) 325 mg PO TID [facility] Last Admin: 07/04/18 10:26 Dose: 325 mg Fluticasone Propionate (Flonase) 1 spr KRISTIN DAILY [facility] Last Admin: 07/04/18 10:26 Dose: 1 spr Hydralazine HCl (Apresoline) 25 mg PO BID [facility] Last Admin: 07/04/18 10:27 Dose: 25 mg Insulin Aspart (Novolog) 0 unit SC ACHS [facility]; Protocol Last Admin: 07/04/18 08:45 Dose: 3 units Insulin Glargine (Lantus) 10 unit SC 2200 [facility] Last Admin: 07/03/18 22:07 Dose: 10 units Isosorbide Mononitrate (Imdur) 60 mg PO DAILY [facility] Losartan Potassium (Cozaar) 50 mg PO DAILY [facility] Last Admin: 07/04/18 10:26 Dose: 50 mg Rosuvastatin Calcium (Crestor) 10 mg PO [facility] Last Admin: 07/03/18 21:29 Dose: 10 mg - Labs Labs: 07/04/18 07:51 07/04/18 07:51
[2018-07-04] MEDS ORDERED: Epoetin Alfa Dialysis 40000 UNIT/ml Inj SC SCH (11:30)
--- NOTE | 2018-07-04 14:13 | CP.PCM.PN ---
Subjective - Date & Time of Evaluation Date of Evaluation: 07/04/18 Time of Evaluation: 14:12 - Subjective Subjective: s/p cath showing severe barrow triple vessel cad patent narvaez to lad and svg to r pda Objective - Vital Signs/Intake and Output Vital Signs (last 24 hours): Temp Pulse Resp BP Pulse Ox 98.1 F 87 20 165/59 H 98 07/04/18 07:20 07/04/18 07:20 07/04/18 07:20 07/04/18 07:20 07/04/18 07:20 Intake and Output: 07/04/18 07/04/18 06:59 18:59 Intake Total 1030 500 Output Total 0 Balance 1030 500 - Medications Medications: Current Medications Acetaminophen (Tylenol 325mg Tab) 650 mg PO Q6 PRN PRN Reason: Headache Last Admin: 07/04/18 13:40 Dose: 650 mg Al Hydrox/Mg Hydrox/Simethicone (Maalox 30 Ml) 30 ml PO Q6 PRN PRN Reason: Indigestion / Heartburn Last Admin: 06/30/18 17:32 Dose: 30 ml Amlodipine Besylate (Norvasc) 10 mg PO DAILY [facility] Last Admin: 07/04/18 10:26 Dose: 10 mg Aspirin (Ecotrin) 81 mg PO DAILY [facility] Last Admin: 07/04/18 10:27 Dose: 81 mg [facility] ([facility]) [facility] Carvedilol (Coreg) 6.25 mg PO BID [facility] Last Admin: 07/04/18 10:26 Dose: 6.25 mg Clopidogrel Bisulfate (Plavix) 75 mg PO DAILY [facility] Last Admin: 07/04/18 10:26 Dose: 75 mg Docusate Sodium (Colace) 100 mg PO TID [facility] Last Admin: 07/04/18 13:41 Dose: 100 mg Epoetin Patrice (Procrit) 4,000 unit SC MWF [facility] Last Admin: 07/03/18 09:31 Dose: 4,000 unit Famotidine (Pepcid) 20 mg IVP DAILY [facility] Last Admin: 07/04/18 10:27 Dose: 20 mg Ferrous Sulfate (Feosol) 325 mg PO TID [facility] Last Admin: 07/04/18 13:41 Dose: 325 mg Fluticasone Propionate (Flonase) 1 spr KRISTIN DAILY [facility] Last Admin: 07/04/18 10:26 Dose: 1 spr Hydralazine HCl (Apresoline) 25 mg PO BID [facility] Last Admin: 07/04/18 10:27 Dose: 25 mg Insulin Aspart (Novolog) 0 unit SC ACHS [facility]; Protocol Last Admin: 07/04/18 12:30 Dose: 8 units Insulin Glargine (Lantus) 10 unit SC 2200 [facility] Last Admin: 07/03/18 22:07 Dose: 10 units Isosorbide Mononitrate (Imdur) 60 mg PO DAILY [facility] Losartan Potassium (Cozaar) 50 mg PO DAILY [facility] Last Admin: 07/04/18 10:26 Dose: 50 mg Rosuvastatin Calcium (Crestor) 10 mg PO HS [facility] Last Admin: 07/03/18 21:29 Dose: 10 mg - Labs Labs: 07/04/18 07:51 07/04/18 07:51 - Constitutional Appears: Well - Head Exam Head Exam: ATRAUMATIC, NORMAL INSPECTION, NORMOCEPHALIC - Eye Exam Eye Exam: EOMI, Normal appearance, PERRL Pupil Exam: NORMAL ACCOMODATION, PERRL - ENT Exam ENT Exam: Mucous Membranes Moist, Normal Exam - Neck Exam Neck Exam: Full ROM, Normal Inspection. absent: Lymphadenopathy - Respiratory Exam Respiratory Exam: Clear to Ausculation Bilateral, NORMAL BREATHING PATTERN - Cardiovascular Exam Cardiovascular Exam: REGULAR RHYTHM, +S1, +S2. absent: Murmur - GI/Abdominal Exam GI & Abdominal Exam: Soft, Normal Bowel Sounds. absent: Tenderness - Extremities Exam Extremities Exam: Full ROM, Normal Capillary Refill, Normal Inspection. absent: Joint Swelling, Pedal Edema - Back Exam Back Exam: NORMAL INSPECTION - Neurological Exam Neurological Exam: Alert, Awake, CN II-XII Intact, Normal Gait, Oriented x3 - Psychiatric Exam Psychiatric exam: Normal Affect, Normal Mood - Skin Skin Exam: Dry, Intact, Normal Color, Warm Assessment and Plan (1) CAD (coronary artery disease) of artery bypass graft Assessment & Plan: add imdur and ranexa on dc cont dapt, bb, statins outpt f/u in 2 weeks Status: Acute (2) Fatigue Status: Acute (3) Diabetes mellitus Status: Acute (4) Hyperlipidemia Status: Acute (5) Abnormal EKG Status: Acute (6) HTN (hypertension) Status: Acute
[2018-07-04] MEDS ORDERED: Ranolazine 500 mg Extended Release Tablets PO SCH (18:00)
[2018-07-04 18:11] VITALS: BP 159/68; PULSE 68; RESP 20; TEMP 97.7; O2SAT 100
== END 2018-07-04 19:36 | disposition home or self-care (01) | DRG 124 ==
LOC: C.ER 12:06 → C.9E 15:11 → C.6T 15:32 → OBSVTOIN 07-01 22:26
PROVIDERS: ADMIT Internal Medicine Pulmonary Disease; ATTEND Internal Medicine Pulmonary Disease
PROC: 4A023N7 Measurement of Cardiac Sampling and Pressure, Left Heart, Percutaneous Approach (ICD-10-PCS; principal; 2018-07-03)
PROC: B2111ZZ Fluoroscopy of Multiple Coronary Arteries using Low Osmolar Contrast (ICD-10-PCS; 2018-07-03)
PROC: B2131ZZ Fluoroscopy of Multiple Coronary Artery Bypass Grafts using Low Osmolar Contrast (ICD-10-PCS; 2018-07-03)
PROC: B2181ZZ Fluoroscopy of Left Internal Mammary Bypass Graft using Low Osmolar Contrast (ICD-10-PCS; 2018-07-03)
DX: I25.119 Atherosclerotic heart disease of native coronary artery with unspecified angina pectoris (principal); I13.0 Hypertensive heart and chronic kidney disease with heart failure and stage 1 through stage 4 chronic kidney disease, or unspecified chronic kidney disease; E11.22 Type 2 diabetes mellitus with diabetic chronic kidney disease; I50.9 Heart failure, unspecified; N18.4 Chronic kidney disease, stage 4 (severe); E11.51 Type 2 diabetes mellitus with diabetic peripheral angiopathy without gangrene; D63.1 Anemia in chronic kidney disease; E78.00 Pure hypercholesterolemia, unspecified; H54.8 Legal blindness, as defined in USA; J45.909 Unspecified asthma, uncomplicated; Z95.1 Presence of aortocoronary bypass graft; R53.83 Other fatigue; D63.8 Anemia in other chronic diseases classified elsewhere; Z79.4 Long term (current) use of insulin